=== PATIENT | female | born 1940 | race Caucasian/White ===

== ENCOUNTER → 2017-08-05 11:08 | Outpatient (CLI) | payer MEDICARE, OTHER, SELFPAY ==
[2017-08-05 12:59] LABS: Anion Gap 6 (5-15); BUN 17 mg/dL (7-18); BUN/Creat Ratio 18.1 RATIO (10-20); Calcium,Total 8.9 mg/dL (8.5-10.1); Chloride 106 mmol/L (98-107); Creatinine, Serum 0.94 mg/dL (0.55-1.02); EST Glomerular Filtration Rate 62 mL/min (>60); Est Glom Filt Rate - Afr Amer 75 mL/min (>60); Glucose 176 mg/dL (74-106); Potassium 4.1 mmol/L (3.5-5.1); Sodium Level 140 mmol/L (136-145); Thyroid Stim Hormone (TSH) 1.57 uIU/mL (0.358-3.74)
== END ==
PROVIDERS: Family Provider Family Medicine; PCP Family Medicine; Visit Provider Family Medicine
DX: I10 Essential (primary) hypertension (principal); F41.1 Generalized anxiety disorder
CPT/HCPCS: 36415; 80048; 84443

== ENCOUNTER → 2018-11-10 | Outpatient (CLI) | payer MEDICARE, SELFPAY ==
[2018-11-10 12:25] LABS: Absolute Lymphocyte Count 2.07 X10^3/uL (0.83-4.51); Absolute Neutrophil Count 3.8 X10^3/uL (2.0-7.7); Basophil# 0.04 X10^3/uL; Basophil% 0.6 % (0-1); Eosinophils% 4.4 % (0-5); Hematocrit 36.3 % (37-47); Hemoglobin 11.7 g/dL (12.0-15.0); Lymphocyte # 2.07 X10^3/ul (4.0); Lymphocyte % 30.5 % (19-41); Mean Corp Hgb Conc 32.2 g/dL (32-36); Mean Corpuscular Hgb 30.9 pg (27.0-32.0); Mean Corpuscular Volume 95.8 fL (81-99); Mean Platelet Vol. 12.1 fl (6.2-12.0); Monocyte# 0.52 X10^3/uL; Monocyte% 7.7 % (0-10); NRBC Flagged by Analyzer 0 % (0-5); Neutrophil # 3.82 X10^3/uL (2.7-7.7); Neutrophil % 56.4 % (47-70); Platelet Count 191 K/mm3 (150-450); RBC Distribution Width CV 13.2 % (11.6-14.6); RBC Distribution Width SD 46.2 fl (35.1-43.9); Red Blood Count 3.79 M/mm3 (4.2-5.4); White Blood Count 6.8 K/mm3 (4.4-11.0)
[2018-11-10 12:47] LABS: ALB/GLOB Ratio 0.9 RATIO (0.9-2.4); AST(SGOT) 17 U/L (15-37); Alanine Aminotransfer ALT/SGPT 37 U/L (13-56); Albumin, Serum 3.4 g/dL (3.2-5.0); Alkaline Phosphatase 61 U/L (45-117); Anion Gap 10 (5-15); BUN 27 mg/dL (7-18); BUN/Creat Ratio 20.6 RATIO (10-20); CRP 7.33 mg/L (0.0-3.0); Chloride 106 mmol/L (98-107); Creatinine, Serum 1.31 mg/dL (0.55-1.02); EST Glomerular Filtration Rate 42 mL/min (>60); Est Glom Filt Rate - Afr Amer 51 mL/min (>60); Globulin 3.7 g/dL (2.2-4.2); Glucose 200 mg/dL (74-106); Protein, Total 7.1 g/dL (6.4-8.2); Rheumatoid Factor < 10.0 IU/mL (<15); Sodium Level 140 mmol/L (136-145); Thyroid Stim Hormone (TSH) 3.17 uIU/mL (0.358-3.74)
[2018-11-13 08:17] LABS: CCP IgG Antibodies 4 units (0-19)
== END | disposition home or self-care (01) ==
LOC: BFHLAB 08:33
PROVIDERS: Family Provider Family Medicine; PCP Family Medicine; Visit Provider Family Medicine
DX: E11.65 Type 2 diabetes mellitus with hyperglycemia (principal); I10 Essential (primary) hypertension; F41.1 Generalized anxiety disorder; M06.4 Inflammatory polyarthropathy
CPT/HCPCS: 36415; 80053; 84443; 85025; 86140; 86200; 86431

== ENCOUNTER 2019-04-26 19:00 | Emergency (ER) | payer MEDICARE, OTHER, SELFPAY ==
[2019-04-26 19:01] VITALS: BP 163/89; PULSE 91; RESP 16; TEMP 36.8; O2SAT 99; BMI 33.5
[2019-04-26 19:10] LABS: Bedside Glucose 196 mg/dL (70-110)
[2019-04-26 20:40] VITALS: BP 155/85; PULSE 81; RESP 16; O2SAT 97
[2019-04-26] MEDS: HYDROcodone Bitartrate/Apap 5/325 Tablet PO (20:44)
[2019-04-26] MEDS: Diphth,Pertuss(Acell),Tet Vac 0.5 ML Vial IM (20:46)
--- NOTE | 2019-04-26 20:50 | RAD_ITS ---
STUDY: X-RAY - LEFT SHOULDER REASON FOR EXAM: Female, 78 years old. fall, pain TECHNIQUE: 4 view(s) of the shoulder. COMPARISON: None. FINDINGS: There is mild degenerative arthrosis of the glenohumeral articulation. There is degenerative arthrosis of the acromioclavicular joint without inferior osseous spur formation. Normal acromion. There are mild degenerative changes of the humeral head. The soft tissue structures are unremarkable. There is no demonstrated fracture. Normal visualized pulmonary apex. RAD/Shoulder min 2 Views IMPRESSION: Degenerative changes as detailed above. There is no evidence of fracture or dislocation. Electronically Signed: Jak Garcias MD at 21:13 EST , Service support ,
--- NOTE | 2019-04-26 20:50 | RAD_ITS ---
STUDY: X-RAY - LEFT HAND REASON FOR EXAM: Female, 78 years old. fall, left hand pain and bruising, patient unable to remove ring TECHNIQUE: 3 view(s) of the hand. COMPARISON: None. FINDINGS: Normal radiocarpal articulation. Normal distal radioulnar joint. Normal visualized carpal bones. Normal carpal articulations There is degenerative arthrosis of the carpometacarpal (CMC) articulation of the thumb. Normal second through fifth carpometacarpal joints. Normal metacarpi. Normal metacarpophalangeal joint of the thumb. There is degenerative arthrosis of the interphalangeal joint of the thumb with articular joint space narrowing. Normal proximal and distal phalanges of the thumb. There are mild arthritic changes of the third metacarpal phalangeal joint. Normal proximal and distal interphalangeal joints of the second through fifth fingers. A ring obscures the midshaft of the fourth proximal phalanx. The soft tissue structures are unremarkable. RAD/Hand Min 3 Views IMPRESSION: There is no evidence of fracture or dislocation. There are diffuse degenerative changes as detailed above. Electronically Signed: Jak Garcias MD at 21:10 EST , Service support ,
--- NOTE | 2019-04-26 22:41 | ED.DEP ---
ED Disposition - Plan for ED Patient: Instructions: FALL, Mechanical Prescriptions: Hydrocodone Bitart/Apap 5-325 [[place] 5MG-325MG] 1 tablet PO Q6H PRN PRN 3 Days #10 tablet PRN Reason: Pain Referrals: Jaciel Barragan MD [Primary Care Provider] -
--- NOTE | 2019-04-26 22:45 | DCINST.ED_ITS ---
ED Disposition - Plan for ED Patient: Instructions: FALL, Mechanical Prescriptions: Hydrocodone Bitart/Apap 5-325 [[place] 5MG-325MG] 1 tab PO Q6H PRN PRN 3 Days #10 tab PRN Reason: Pain Prescription Printed Referrals: Jaciel Barragan MD [Primary Care Provider] - Kb Flynn MD [STAFF PHYSICIAN] -
--- NOTE | 2019-04-26 22:46 | ED.DCSUM_ITS ---
- ER Visit Summary Date of Service: 04/26/19 Chief Complaint: Fall History of Present Illness: The patient is a 78 F presenting after fall. Patient was walking her dog and tripped and fell. She fell onto her left shoulder. She did not hit her head or lose consciousness. She is not on anticoagulants. Last tetanus is unknown. She complains of left shoulder and left hand pain. Denies other complaints. Physical Examination: Vitals are stable. Patient is afebrile. Alert no acute distress. HEENT exam is unremarkable. Neck is nontender Lungs are clear and equal bilaterally. Heart is regular rate and rhythm. Abdomen is soft nontender nondistended. Extremities left shoulder diffuse tenderness with painful range of motion. Left hand ecchymosis. Left small finger abrasion. Neurovascularly intact distally. Skin is warm and dry. No focal neurologic deficit. Remainder of exam is unremarkable. Emergency Department Course and Treatment: X-ray left shoulder and left hand show no fracture or dislocation. She was given tetanus IM. Wound was cleaned and dressed. She was given [place]. She was given a sling. Advised range of motion exercises. She is advised to follow-up with her primary care physician or orthopedics. Advised return to ED for worsening complaints. Disposition: Discharge home Impression: Left shoulder contusion, left hand contusion, status post mechanical fall This note was generated with Logo[employer] dictation software. It may contain incorrect words, spelling, and punctuation that were not noted in review of the chart prior to signing ED Disposition - Plan for ED Patient: Instructions: FALL, Mechanical Prescriptions: Hydrocodone Bitart/Apap 5-325 [[place] 5MG-325MG] 1 tab PO Q6H PRN PRN 3 Days #10 tab PRN Reason: Pain Prescription Printed Referrals: Kb Flynn MD [STAFF PHYSICIAN] - Jaciel Barragan MD [Primary Care Provider] -
== END 2019-04-26 22:57 | disposition home or self-care (01) ==
PROVIDERS: Emergency Provider Emergency Medicine; PCP Family Medicine
DX: S40.012A Contusion of left shoulder, initial encounter (principal); S60.222A Contusion of left hand, initial encounter; S60.417A Abrasion of left little finger, initial encounter; W01.0XXA Fall on same level from slipping, tripping and stumbling without subsequent striking against object, initial encounter; Y93.K1 Activity, walking an animal; Y92.9 Unspecified place or not applicable; E11.9 Type 2 diabetes mellitus without complications; I10 Essential (primary) hypertension; Z79.84 Long term (current) use of oral hypoglycemic drugs; Z79.899 Other long term (current) drug therapy
CPT/HCPCS: 73030; 73130; 82962; 90471; 90715; 99283

== ENCOUNTER → 2019-05-25 10:11 | Outpatient (CLI) | payer MEDICARE, OTHER, SELFPAY ==
[2019-04-26 19:01] VITALS: BMI 33.5
[2019-05-25 12:23] LABS: Absolute Neutrophil Count 4.9 X10^3/uL (2.0-7.7); Basophil# 0.05 X10^3/uL; Basophil% 0.6 % (0-1); Eosinophil# 0.33 X10^3/uL; Hemoglobin 11.5 g/dL (12.0-15.0); Lymphocyte % 28.2 % (19-41); Mean Corp Hgb Conc 31.9 g/dL (32-36); Mean Corpuscular Hgb 30.7 pg (27.0-32.0); Mean Platelet Vol. 11.9 fl (6.2-12.0); Monocyte# 0.54 X10^3/uL; Monocyte% 6.6 % (0-10); NRBC Flagged by Analyzer 0 % (0-5); Neutrophil # 4.91 X10^3/uL (2.7-7.7); Neutrophil % 60.2 % (47-70); Platelet Count 215 K/mm3 (150-450); RBC Distribution Width CV 13.2 % (11.6-14.6); RBC Distribution Width SD 46.5 fl (35.1-43.9); Red Blood Count 3.75 M/mm3 (4.2-5.4); White Blood Count 8.2 K/mm3 (4.4-11.0)
[2019-05-25 12:45] LABS: ALB/GLOB Ratio 0.8 RATIO (0.9-2.4); AST(SGOT) 17 U/L (15-37); Alanine Aminotransfer ALT/SGPT 37 U/L (13-56); Albumin, Serum 3.3 g/dL (3.2-5.0); Alkaline Phosphatase 67 U/L (45-117); Anion Gap 7 (5-15); BUN 27 mg/dL (7-18); BUN/Creat Ratio 19.4 RATIO (10-20); Calcium,Total 9.7 mg/dL (8.5-10.1); Chloride 107 mmol/L (98-107); Creatinine, Serum 1.39 mg/dL (0.55-1.02); EST Glomerular Filtration Rate 39 mL/min (>60); Est Glom Filt Rate - Afr Amer 47 mL/min (>60); Glucose 192 mg/dL (74-106); Potassium 4.6 mmol/L (3.5-5.1); Protein, Total 7.3 g/dL (6.4-8.2); Sodium Level 140 mmol/L (136-145); Thyroid Stim Hormone (TSH) 1.43 uIU/mL (0.358-3.74)
[2019-05-25 12:47] LABS: Vitamin B12 499 pg/mL (211-911)
== END ==
PROVIDERS: PCP Family Medicine; Visit Provider Family Medicine
DX: E11.42 Type 2 diabetes mellitus with diabetic polyneuropathy (principal); R10.811 Right upper quadrant abdominal tenderness
CPT/HCPCS: 36415; 80053; 82607; 84443; 85025

== ENCOUNTER → 2019-06-04 09:38 | Outpatient (CLI) | payer MEDICARE, OTHER, SELFPAY ==
--- NOTE | 2019-06-04 09:39 | US_ITS ---
STUDY: ABDOMINAL ULTRASOUND - RIGHT UPPER QUADRANT REASON FOR VISIT: Female, 79 years old. Right upper quadrant fullness TECHNIQUE: Ultrasound evaluation of the right upper quadrant was performed with real-time and static dumont-scale imaging. TECHNICAL QUALITY: Adequate. COMPARISON: 12 October 2016 FINDINGS: Liver: The liver measures 17 cm. There is increased echogenicity of the liver. The bile ducts are within normal limits. There is hepatic color flow. The direction of portal flow is hepatopetal. There is no demonstrated mass lesion. Gallbladder: Normal distended gallbladder. The gallbladder wall measures 2 mm. There is a negative sonographic Martinez''s sign. There is no pericholecystic fluid. There are no gallstones. Common Bile Duct (C.B.D.): The common bile duct measures 4 mm. Pancreas: Normal size of the head, body and tail of the pancreas. There is normal echogenicity of the pancreas. There is no demonstrated pancreatic mass or cyst. Right Kidney: Normal size of the right kidney. The right kidney measures 10.4 x 6.7 x 4.1 cm. Normal renal cortex. The right cortex measures 1.2 cm. There is no demonstrated renal mass or cyst. There is no right hydronephrosis. US/Abdomen Limited IMPRESSION: Hepatomegaly and hepatic steatosis. Hepatology referral is advised. Electronically Signed: Carrington Glynn, at 20:00 EST Tel , Service support ,
== END ==
PROVIDERS: PCP Family Medicine; Referring Provider Family Medicine; Visit Provider Family Medicine
DX: R10.811 Right upper quadrant abdominal tenderness (principal); R19.01 Right upper quadrant abdominal swelling, mass and lump
CPT/HCPCS: 76705

== ENCOUNTER → 2019-06-29 11:26 | Outpatient (CLI) | payer MEDICARE, OTHER, SELFPAY ==
[2019-06-29 13:07] LABS: Ferritin 64 ng/mL (8-252); Iron 72 ug/dL (50-170); Iron Binding Capacity,Total 323 ug/dL (250-450); PERCENT IRON SATURATION 22.3 % (15.0-55.0)
[2019-06-29 13:40] LABS: Hepatitis B Surface Antibody Non-Reactive; Hepatitis B Surface Antigen Non-Reactive (Nonreactive); Hepatitis C Antibody Non-Reactive (Nonreactive)
[2019-07-02 13:57] LABS: ANTINUCLEAR ANTIBODIES DIRECT Negative (Negative); Anti-Mitochondrial AB <20.0 Units (0.0-20.0)
== END ==
PROVIDERS: PCP Family Medicine; Visit Provider Internal Medicine Gastroenterology
DX: K76.0 Fatty (change of) liver, not elsewhere classified (principal); R10.10 Upper abdominal pain, unspecified; R19.4 Change in bowel habit; D64.9 Anemia, unspecified
CPT/HCPCS: 36415; 82105; 82390; 82728; 82784; 83516; 83540; 83550; 86038; 86644; 86645; 86664; 86665; 86704; 86705; 86706; 86708; 86709; 86803; 87340

== ENCOUNTER 2019-07-02 13:00 | Outpatient (RCR) | payer MEDICARE, OTHER, SELFPAY ==
--- NOTE | 2019-05-30 09:19 | HP.PTEVAL ---
Patient's Visit Information MARIEL KIM is a 79 year old F referred to Physical Therapy by Jaciel Barragan MD with a diagnosis of ataxic gait, falls.. Date of Evaluation: 05/30/19 Physical Therapist: Gianni Rangel DPT, OCS, CSCS - Visit Plan Frequency: 2x /Week Duration: 4-6 Weeks Plan: Neurocom balance assessment then. 2x/week for 4 weeks for. vestibular adn VOR challenges, and general strength/functional strength pt can do at home and transfoer off floor. - Subjective Findings: My balance is not good. Has a rough time getting up out of chair. Standing still is challenging.Has abdominal pain and will have tests next week. Has fallen 2x lately and mostly caused by dog pulling on her. One time turned too quick in the house on way to bathroom and lost balance. Has h/o B TKA and cannot get up off floor. No dizzyness. Has some anxiety. Has B feet numbness from diabetes. Balance has felt off for a long time but addressing now due to falls. Got cane and uses it now. Enjoys wrestling watching and having a hard time to get around in the gyms. [facility] with stairlift to basement. Able to dobasics herself buit needs to rest adn take it slow. No regular exercises. Spends day taking care of cat and dog, cleans and watches hallmark movies. Goes to breakfast a few times per month. with friends. - Pain R abdomen Pain Intensity (Out of 10): 0 Pain Intensity Range: 1, 6 - Objective Walks carrying cane slowly back to PT but I, better mpod I iwth cane. Transfers out of chair slow but steady, needing to take a minute upon standing. VOR Walking is difficult. Feels unsteady upon standing for short time, no dizzyness. Tightness present in HS and quads, piriformis all mod tight. Steps are short and poor weight shift forward. reflexes 2/3 patella and achilles. Sensation diminished to gross light touch in feet. Strength in hips 3+ and knees 4- and ankles DF 3+, PF 4- and ev/inv 3+. Coordination to reciprocal toe tapping is poor. - Balance Scores Functional Gait Assessment Score: 19 % Disability: 36.6700 CATSIB Score (Max score 120 seconds): 72 - Goals Goal 1:: FGA to diminish fall risk. Goal Time Frame: 4-6 Weeks Goal 2:: Pt feel 75% better in balance and safe getting up out of chair. Goal Time Frame: 4-6 Weeks Goal 3:: I approp HEp to minimize future problems. Goal Time Frame: 4-6 Weeks Goal 4:: Get up off floor without assist. Goal Time Frame: 4-6 Weeks - Rehabilitation Potential Physical Therapy Diagnosis: Balance defictis due to neuroapthy and VOR deficits. Rehabilitation Potential: Fair - Anticipated Interventions Patient/Client Instruction: Educate patient on: Condition, Plan of Care For the Purpose of:: To improve muscle performance and motor function, To increase tolerance to activity/condition/position, To improve ability of physical actions for home/community/work/leisure, To improve gait and locomotor functions Therapeutic Exercise to Include: Strength training, Balance training, Postural training, Flexibilty training, Gait and locomotor training, Neuromotor development For the Purpose of:: To improve muscle performance and motor function, To increase tolerance to activity/condition/position Thank you for the opportunity to evaluate your patient. For Medicare and Medicare HMO plans, please review the plan of care and approve it. It will need to be FAXED BACK to us at [phone] for Medicare purposes. For Medicare only, by signing this I certify the plan of care. Please let me know if there are questions or concerns regarding this plan of care. Physician Signature: Date:
--- NOTE | 2019-06-05 11:42 | HP.PTCOM_ITS ---
PT Communication Note 06/05/[address] Jaciel Barragan MD , Thank you for the referral of Denisha to [facility] for baalnce assessment. i have enclosed a copy of the results for your review. In summation, she scored low on the vestibular portion of the [employer] test. She scored poorly on most portions of the Limits of Stability Test. She shows great fear of shifting her weight and sudden movments. With these results in mind, we will treat her with weight shifting and vestibular exercises as well as general balance and functional exercise. If there are questions regarding her PT, please feel free to call me. Thank you for this referral. Sincerely, TANK AlmanzaT, OCS, CSCS Contact Information
--- NOTE | 2019-07-02 13:53 | HP.PTDCSUM_ITS ---
It has been my pleasure to treat MARIEL KIM referred by Jaciel Barragan MD, with the diagnosis of ataxic gait, falls. for a total of 10 visit(s). Discharge Date: 07/02/19 Please see the following information for a summary of their discharge status. Subjective: Feeling better with balance. Does not use cane anymore. No falls. Does not feel dangerous. Has some home exercises she will continue. R abdomen Pain Intensity (Out of 10): 5 % Improvement: 70 Objective/Function: FGA +3. Transfer off the floor not smooth but was I with mat table. Walks on firm flat surface safe and I. Wishes to be done with PT due to other medical problems and COVID 19. Goal 1:: FGA to diminish fall risk. Goal Progress: Goal Met Goal 2:: Pt feel 75% better in balance and safe getting up out of chair. Goal Progress: Goal Met Goal 3:: I approp HEp to minimize future problems. Goal Progress: Goal Met Goal 4:: Get up off floor without assist. Goal Progress: Goal Met Plan: d/c If there are questions or concerns regarding this patient's physical therapy, pl ease feel free to call me at [phone]. Thank you for the referral of this patient. Sincerely, Gianni Rangel, DPT, OCS, CSCS
== END 2019-07-02 19:00 | disposition home or self-care (01) ==
LOC: PT 13:00
PROVIDERS: PCP Family Medicine; Referring Provider Family Medicine; Visit Provider Family Medicine
DX: R26.81 Unsteadiness on feet (principal); R26.0 Ataxic gait; Z91.81 History of falling
CPT/HCPCS: 97110; 97162; 97164; 97750

== ENCOUNTER → 2019-12-26 14:36 | Outpatient (CLI) | payer MEDICARE, OTHER, SELFPAY ==
[2019-12-26 16:51] LABS: Absolute Lymphocyte Count 2.27 X10^3/uL (0.83-4.51); Absolute Neutrophil Count 4.6 X10^3/uL (2.0-7.7); Basophil# 0.05 X10^3/uL; Basophil% 0.7 % (0-1); Eosinophil# 0.26 X10^3/uL; Eosinophils% 3.4 % (0-5); Hemoglobin 11.4 g/dL (12.0-15.0); Lymphocyte # 2.27 X10^3/ul (4.0); Lymphocyte % 29.6 % (19-41); Mean Corp Hgb Conc 31.7 g/dL (32-36); Mean Corpuscular Hgb 30.4 pg (27.0-32.0); Mean Platelet Vol. 12.3 fl (6.2-12.0); Monocyte# 0.48 X10^3/uL; Monocyte% 6.3 % (0-10); NRBC Flagged by Analyzer 0 % (0-5); Neutrophil # 4.59 X10^3/uL (2.7-7.7); Neutrophil % 59.6 % (47-70); Platelet Count 233 K/mm3 (150-450); RBC Distribution Width CV 13.4 % (11.6-14.6); RBC Distribution Width SD 47.4 fl (35.1-43.9); Red Blood Count 3.75 M/mm3 (4.2-5.4); White Blood Count 7.7 K/mm3 (4.4-11.0)
[2019-12-26 17:46] LABS: ALB/GLOB Ratio 0.9 RATIO (0.9-2.4); AST(SGOT) 12 U/L (15-37); Alanine Aminotransfer ALT/SGPT 27 U/L (13-56); Albumin, Serum 3.4 g/dL (3.2-5.0); Alkaline Phosphatase 59 U/L (45-117); Anion Gap 5 (5-15); BUN 26 mg/dL (7-18); BUN/Creat Ratio 18.8 RATIO (10-20); Calcium,Total 9.1 mg/dL (8.5-10.1); Chloride 105 mmol/L (98-107); Creatinine, Serum 1.38 mg/dL (0.55-1.02); EST Glomerular Filtration Rate 39 mL/min (>60); Est Glom Filt Rate - Afr Amer 48 mL/min (>60); Globulin 3.9 g/dL (2.2-4.2); Glucose 258 mg/dL (74-106); Iron 81 ug/dL (50-170); Potassium 4.9 mmol/L (3.5-5.1); Protein, Total 7.3 g/dL (6.4-8.2); Sodium Level 138 mmol/L (136-145)
== END ==
PROVIDERS: PCP Family Medicine; Visit Provider Family Medicine
DX: E11.65 Type 2 diabetes mellitus with hyperglycemia (principal); R16.0 Hepatomegaly, not elsewhere classified; D64.9 Anemia, unspecified
CPT/HCPCS: 36415; 80053; 83540; 85025

== ENCOUNTER 2020-02-19 18:09 | Emergency (ER) | payer MEDICARE, OTHER, SELFPAY ==
[2020-02-19 18:10] VITALS: BP 117/66; PULSE 92; RESP 16; TEMP 36.4; O2SAT 97; BMI 26.2
[2020-02-19 18:11] VITALS: BP 117/66; PULSE 92; RESP 16; TEMP 36.4; O2SAT 97
--- NOTE | 2020-02-19 19:07 | ED.DCSUM_ITS ---
History of Present Illness Chief Complaint: Diarrhea Informant: Patient Narrative: 79-year-old female with past medical history of hypertension and diabetes presents with diarrhea for the past 3 weeks. States that she has approximately 6-7 stools per day. Describes them as watery. Denies any hematochezia or melena. States that she has abdominal cramping which is relieved by her bowel movement. No recent antibiotic therapy or travel. No recent hospitalization. Denies any fever or chills. Denies any urinary symptoms. Past Medical History - Allergies and Home Meds Allergies/Adverse Reactions: Allergies No Known Allergies Allergy (Verified 04/26/19 19:05) Primary Care Physician: Jaciel Barragan MD [Primary Care Provider] - Past Medical History: - - HTN and DM Lives: Spouse/ Significant Other Smoking Status: Never smoker Alcohol: None Drugs: None Review of Systems General: Denies: Chills, Fever, Sweats Eyes: Denies: Visual changes - bilaterally, Diplopia ENT: Denies: Rhinorrhea, Sore throat Cardiovascular: Denies: Chest pain, Palpitations Respiratory: Denies: Dyspnea, Cough, Dyspnea on exertion Gastrointestinal: Reports: Diarrhea. Denies: Abdominal pain, Nausea, Vomiting, Melena, Hematochezia Genitourinary: Denies: Dysuria, Hematuria, Frequency Musculoskeletal: Denies: Back pain, Extremity Pain Skin: Denies: Rash, Wounds Neurological: Denies: Headache, Weakness, Numbness Physical Exam Vital Signs/Narrative: Vital Signs Temp Pulse Resp BP Pulse Ox 02/19/20 18:10 97.6 F L 92 16 117/66 97 General: Well nourished, Well developed, No Acute Distress Head: Normocephalic, Atraumatic Eyes: Perrl, EOMI ENT: Moist mucous membranes, No rhinorrhea Neck: Supple, Nontender Cardiovascular: Regular rate, Regular rhythm, No murmurs Respiratory: No distress, CTA bilaterally, Chest nontender Abdomen: Soft, Nontender, Nondistended, Normal bowel sounds Back: Nontender, Normal Inspection Extremities: Nontender, No edema Skin: Normal color, No rash Neurological: Alert, Oriented x3, Cranial nerves II-XII grossly intact, Normal Strength, Normal Sensation Psychological: Normal affect, Normal Mood Diagnostic/Tx/Re-eval Laboratory Data 11/10/20 11/10/20 11/10/20 19:03 19:03 20:41 WBC 6.7 RBC 3.76 L Hgb 11.6 L Hct 36.6 L MCV 97.3 MCH 30.9 MCHC 31.7 L RDW Std Deviation 48.1 H RDW Coeff of Ed 13.4 Plt Count 175 MPV 12.4 H Immature Gran % (Auto) 0.600 Neut % (Auto) 61.7 Lymph % (Auto) 26.9 Wake % (Auto) 9.3 Eos % (Auto) 1.2 Baso % (Auto) 0.3 Absolute Neuts (auto) 4.1 Absolute Lymphs (auto) 1.79 Nucleated RBC % 0 Sodium 138 Potassium 5.8 H Chloride 107 Carbon Dioxide 24.0 Anion Gap 7 BUN 29 H Creatinine 1.84 H Estim Creat Clear Calc 21.76 Est GFR (MDRD) Af Amer 34 L Est GFR (MDRD) Non-Af 28 L BUN/Creatinine Ratio 15.8 Glucose 177 H Calcium 9.3 Total Bilirubin 0.40 AST 28 ALT 29 Alkaline Phosphatase 63 Total Protein 7.5 Albumin 3.1 L Globulin 4.4 H Albumin/Globulin Ratio 0.7 L Lipase 91 Urine Color Yellow Urine Clarity Sl. Cloudy Urine pH 6.0 Ur Specific [place] 1.020 Urine Protein 30 H Urine Glucose (UA) Normal Urine Ketones Negative Urine Occult Blood 10 H Urine Nitrite Negative Urine Bilirubin Negative Urine Urobilinogen Normal Ur Leukocyte Esterase 500 H Urine RBC 0 SEEN Urine WBC 5-10 SEEN Ur Squamous Epith Cells 0-5 SEEN Urine Bacteria 2+ Urine Mucus 0 SEEN - Medical Decision Making Patient appears well and nontoxic. Benign abdominal exam. Slight acute renal insufficiency. Patient given 1 L of normal saline. Patient able to drink and tolerate Gatorade. Will be given loperamide. Will follow up with her party supply specialist. Discharged home in stable condition. Impression: 1. Diarrhea 2. Volume depletion ED Disposition - Plan for ED Patient: Disposition: Home or Assisted Living Instructions: ED Diarrhea Viral Prescriptions: Loperamide HCl [Loperamide] 2 mg PO 4X/DAY #20 tab Prescription Printed Referrals: Jaciel Barragan MD [Primary Care Provider] - 2 Days
[2020-02-19] MEDS: 0.9% Normal Saline 1,000 ML 1000 ML IV (19:14)
[2020-02-19 19:28] LABS: Absolute Lymphocyte Count 1.79 X10^3/uL (0.83-4.51); Absolute Neutrophil Count 4.1 X10^3/uL (2.0-7.7); Basophil# 0.02 X10^3/uL; Basophil% 0.3 % (0-1); Eosinophil# 0.08 X10^3/uL; Eosinophils% 1.2 % (0-5); Hematocrit 36.6 % (37-47); Hemoglobin 11.6 g/dL (12.0-15.0); Lymphocyte # 1.79 X10^3/ul (4.0); Lymphocyte % 26.9 % (19-41); Mean Corp Hgb Conc 31.7 g/dL (32-36); Mean Corpuscular Hgb 30.9 pg (27.0-32.0); Mean Corpuscular Volume 97.3 fL (81-99); Mean Platelet Vol. 12.4 fl (6.2-12.0); Monocyte# 0.62 X10^3/uL; Monocyte% 9.3 % (0-10); NRBC Flagged by Analyzer 0 % (0-5); Neutrophil # 4.11 X10^3/uL (2.7-7.7); Neutrophil % 61.7 % (47-70); Platelet Count 175 K/mm3 (150-450); RBC Distribution Width CV 13.4 % (11.6-14.6); RBC Distribution Width SD 48.1 fl (35.1-43.9); Red Blood Count 3.76 M/mm3 (4.2-5.4); White Blood Count 6.7 K/mm3 (4.4-11.0)
[2020-02-19 19:49] LABS: ALB/GLOB Ratio 0.7 RATIO (0.9-2.4); AST(SGOT) 28 U/L (15-37); Alanine Aminotransfer ALT/SGPT 29 U/L (13-56); Albumin, Serum 3.1 g/dL (3.2-5.0); Alkaline Phosphatase 63 U/L (45-117); Anion Gap 7 (5-15); BUN 29 mg/dL (7-18); BUN/Creat Ratio 15.8 RATIO (10-20); Calcium,Total 9.3 mg/dL (8.5-10.1); Chloride 107 mmol/L (98-107); Creatinine, Serum 1.84 mg/dL (0.55-1.02); EST Glomerular Filtration Rate 28 mL/min (>60); Est Glom Filt Rate - Afr Amer 34 mL/min (>60); Estimated Creatinine Clearance 21.76 ml/min; Globulin 4.4 g/dL (2.2-4.2); Glucose 177 mg/dL (74-106); Lipase 91 U/L (73-393); Potassium 5.8 mmol/L (3.5-5.1); Protein, Total 7.5 g/dL (6.4-8.2); Sodium Level 138 mmol/L (136-145)
[2020-02-19 20:09] VITALS: BP 133/67; PULSE 53; RESP 18; O2SAT 98
[2020-02-19 20:49] LABS: Mucous, Urine 0 SEEN /hpf (<or=2+); Red Blood Cells-Urine 0 SEEN /hpf (0-5)
[2020-02-19 20:50] LABS: Color, Urine Yellow (Yellow); Glucose, Dipstick Normal (Normal); Ketone-Dipstick Negative (Negative); Leukocyte Esterase-Dipstick 500 /ul (Negative); Nitrite-Dipstick Negative (Negative); Occult Blood-Urine 10 /ul (Negative); Protein-Dipstick 30 mg/dl (Negative); Urine Bilirubin Dipstick Negative (Negative); Urine Clarity Sl. Cloudy (Clear); Urine Urobilinogen Normal (Normal)
[2020-02-19 20:59] LABS: Bacteria 2+ /hpf (None Seen); Squamous Epithelial Cells - UA 0-5 SEEN /hpf (5-10); White Blood Cells 5-10 SEEN /hpf (0-5)
== END 2020-02-19 22:01 | disposition home or self-care (01) ==
PROVIDERS: Emergency Provider Emergency Medicine; PCP Family Medicine
DX: R19.7 Diarrhea, unspecified (principal); E86.9 Volume depletion, unspecified; N28.9 Disorder of kidney and ureter, unspecified; I10 Essential (primary) hypertension; E11.9 Type 2 diabetes mellitus without complications; Z79.84 Long term (current) use of oral hypoglycemic drugs; Z79.899 Other long term (current) drug therapy
CPT/HCPCS: 80053; 81001; 83690; 85025; 87086; 87088; 96360; 99282; J7030; A4216

== ENCOUNTER 2020-02-22 08:12 | Inpatient (IN) | payer MEDICARE, OTHER, SELFPAY ==
[2020-02-22] VITALS (9 sets, daily range): BP systolic 124–170; BP diastolic 68–94; PULSE 73–82; RESP 14–23; TEMP 36.2–37.1; O2SAT 93–98; BMI 32.8; BMI 32.1
--- NOTE | 2020-02-22 08:59 | EKG12_ITS ---
Test Reason : Blood Pressure : / mmHG Vent. Rate : 079 BPM Atrial Rate : 079 BPM P-R Int : 130 ms QRS Dur : 088 ms QT Int : 402 ms P-R-T Axes : 045 -31 073 degrees QTc Int : 460 ms Normal sinus rhythm Left axis deviation Abnormal ECG Confirmed by DELILAH MANZO, MARY ([id number]), supervising editor news reel OBED MUÑOZ ([id number]) on 02/26/2020 8:37:07 AM Referred By: YANET Confirmed By:MARY MAZARIEGOS MD
--- NOTE | 2020-02-22 09:00 | ED.VISSUMM ---
- ER Visit Summary Date of Service: 02/22/20 Chief Complaint: Generalized weakness History of Present Illness: The patient is a 79 F history of diabetes and diabetic neuropathy. Patient states that she is just felt weak for last several days. She was treated in the emergency department earlier this week. Said she was feeling better but now feels worse again. Denies any chest pain. Denies any shortness of breath. Denies any abdominal pain. Diarrhea is resolved. No melena. No fever. She has had some sweats. She denies any chest pain. No dysuria. Physical Examination: Female no acute distress. Vital signs stable afebrile. Pulse ox 97% on room air no signs hypoxia. HEENT exam unremarkable. Neck nontender. Lungs clear to auscultation bilaterally. Heart regular rhythm no murmur. Abdomen soft and nontender. Extremities moves all 4. No edema. Bilateral prior knee replacements. Neurologically she is awake and alert. She has diabetic neuropathies with numbness in her hands and feet that is not new. No motor deficits. Answering questions and following commands. Acting appropriately. Test Results: EKG shows normal sinus rhythm rate of 79 no acute signs of AR or ischemia. Chest x-ray portable 1 view I will see any acute abnormality radiologist is concerned for a possible left lower lobe infiltrate I would not call that at this time. CBC shows a white count of 6. Hemoglobin 12 no bands. Chemistries glucose is 69 BUN 23 creatinine 1.41 worsening renal insufficiency. Gap of 5. UA 25-50 whites no reds 2+ bacteria no nitrates culture sent consistent with a UTI. Covid panel is positive. Emergency Department Course and Treatment: Screening labs. Clinically patient looks good. She really does not look that dehydrated. Unremarkable exam. Treatment Plan: Repeat exam patient is resting comfortably in bed she and I discussed all of her test results she tells me at home she was so weak she could not get out of bed and to call the squad to bring her in. Given her age and UTI and generalized weakness and overall comorbidities I think she will need to be admitted for further evaluation and IV antibiotics. She will be started on IV Levaquin. Disposition: Hospitalist on page Impression: Acute generalized weakness secondary to Covid respiratory infection Unable to ambulate secondary to weakness Acute UTI Renal insufficiency This note was generated with [employer] dictation software. It may contain incorrect words, spelling, and punctuation that were not noted in review of the chart prior to signing ED Disposition - Plan for ED Patient:
[2020-02-22 09:07] LABS: Absolute Lymphocyte Count 1.13 X10^3/uL (0.83-4.51); Absolute Neutrophil Count 4.9 X10^3/uL (2.0-7.7); Basophil# 0.02 X10^3/uL; Basophil% 0.3 % (0-1); Eosinophil# 0.06 X10^3/uL; Eosinophils% 0.9 % (0-5); Hematocrit 37.9 % (37-47); Hemoglobin 12.1 g/dL (12.0-15.0); Lymphocyte # 1.13 X10^3/ul (4.0); Mean Corp Hgb Conc 31.9 g/dL (32-36); Mean Corpuscular Hgb 30.7 pg (27.0-32.0); Mean Corpuscular Volume 96.2 fL (81-99); Mean Platelet Vol. 11.4 fl (6.2-12.0); Monocyte# 0.49 X10^3/uL; Monocyte% 7.4 % (0-10); NRBC Flagged by Analyzer 0 % (0-5); Neutrophil % 73.6 % (47-70); Platelet Count 190 K/mm3 (150-450); RBC Distribution Width CV 12.9 % (11.6-14.6); RBC Distribution Width SD 46.1 fl (35.1-43.9); Red Blood Count 3.94 M/mm3 (4.2-5.4); White Blood Count 6.7 K/mm3 (4.4-11.0)
[2020-02-22 09:22] LABS: Anion Gap 5 (5-15); BUN 23 mg/dL (7-18); BUN/Creat Ratio 16.3 RATIO (10-20); Calcium,Total 9.3 mg/dL (8.5-10.1); Chloride 109 mmol/L (98-107); Creatinine, Serum 1.41 mg/dL (0.55-1.02); EST Glomerular Filtration Rate 38 mL/min (>60); Est Glom Filt Rate - Afr Amer 46 mL/min (>60); Glucose 69 mg/dL (74-106); Potassium 4.9 mmol/L (3.5-5.1); Sodium Level 139 mmol/L (136-145)
--- NOTE | 2020-02-22 09:26 | RAD_ITS ---
STUDY: X-RAY CHEST REASON FOR EXAM: Female, 79 years old. Pt c/o weakness, seen in ED few days ago for diarrhea TECHNIQUE: Single AP portable view of the chest. COMPARISON: None. FINDINGS: EKG electrodes are seen. There is a focal left lower lobe infiltrate. There is no demonstrated pleural abnormality. Normal size heart. Normal mediastinum and joslyn. Normal visualized pulmonary arteries. There is atherosclerotic calcification of the aortic arch with tortuosity. There are diffuse degenerative changes of the visualized thoracic spine. Normal visualized ribs, clavicles, and shoulders. There is no demonstrated abnormality of the visualized soft tissue structures of the upper abdomen. RAD/Chest 1 View (Portable) IMPRESSION: Focal left lower lobe infiltrate. Electronically Signed: Navjot Mahmood, at 9:51 EST , Service support ,
[2020-02-22 11:35] LABS: Mucous, Urine 0 SEEN /hpf (<or=2+)
[2020-02-22 11:38] LABS: Color, Urine Yellow (Yellow); Glucose, Dipstick Normal (Normal); Ketone-Dipstick Negative (Negative); Leukocyte Esterase-Dipstick 500 /ul (Negative); Nitrite-Dipstick Negative (Negative); Occult Blood-Urine 10 /ul (Negative); Protein-Dipstick 15 mg/dl (Negative); Urine Bilirubin Dipstick Negative (Negative); Urine Clarity Sl. Cloudy (Clear); Urine Urobilinogen Normal (Normal)
[2020-02-22 11:46] LABS: White Blood Cells 25-50 SEEN /hpf (0-5)
[2020-02-22 11:47] LABS: Bacteria 2+ /hpf (None Seen); Red Blood Cells-Urine 0 SEEN /hpf (0-5); Squamous Epithelial Cells - UA 0-5 SEEN /hpf (5-10)
[2020-02-22] MEDS: levoFLOXacin IV 750 MG/150 ML BAG 100 MG IV (12:34)
--- NOTE | 2020-02-22 12:41 | PCM.HP.STD ---
Problem List (1) COVID-19 Status: Acute (2) UTI (urinary tract infection) Status: Acute Qualifiers: Urinary tract infection type: site unspecified (3) Type 2 diabetes mellitus with hypoglycemia Status: Acute Qualifiers: Diabetes mellitus rodent exterminator insulin use: without rodent exterminator use Diabetes mellitus complication detail: without coma Qualified Code(s): E11.649 - Type 2 diabetes mellitus with hypoglycemia without coma (4) Chronic kidney disease, stage III (moderate) Status: Chronic (5) Hypertension Status: Chronic Qualifiers: Hypertension type: essential hypertension Qualified Code(s): I10 - Essential (primary) hypertension (6) Anxiety and depression Status: Chronic (7) GERD (gastroesophageal reflux disease) Status: Chronic Qualifiers: Esophagitis presence: esophagitis presence not specified Qualified Code(s): K21.9 - Gastro-esophageal reflux disease without esophagitis History of Present Illness Date of Admission: 02/22/20 Chief Complaint: Fatigue, malaise, recent diarrhea, fever, chills. The patient is a 79 y/o F w/ PMHx: Obesity, HTN, GERD, Anxiety and Depression, Diabetes mellitus type II who presents to the [facility] ED on 02/22/20 with history of cough, mild dyspnea, chills with diaphoresis, subjective fever in addition to diarrhea approximately 3 weeks prior noting that several family members had been ill and had been around her with Covid with recent discontinuation of quarantine however patient continued to have fatigue, malaise prompting ED evaluation 02/19/2020 for these complaints with urinalysis at that time unremarkable with urine culture with mixed derek administered Imodium at that time for diarrhea which eventually resolved however she now returns secondary to severity of increased debility and weakness, even unable to get up prompting evaluation. Patient denies any recent specific diarrhea, increased urinary frequency or suprapubic discomfort. Upon presentation to the ED patient does admit that she has not eaten all day. Work-up in the ED included T 97.5, heart rate 81, BP initially 170/82, respiratory rate 18, 97% on room air, CBC with WC 6.7, hemoglobin 12.1, platelet 190 without marked shift, D-dimer 0.82, BMP with chloride 109, BUN/creatinine 23/1.42, glucose 69, magnesium 1.2, urinalysis with specific gravity 1.020, nitrite negative, leukocyte esterase 500 however urine WBCs 25-50 with 2+ urine bacteria, Covid testing positive, urine culture pending per ED, chest x-ray read as a focal left lower lobe infiltrate but per review with the ED physician lower suspicion. Past Medical History Past Medical History (Chronic Problems): Chronic Problems Chronic kidney disease, stage III (moderate) (Chronic) Hypertension (Chronic) Anxiety and depression (Chronic) GERD (gastroesophageal reflux disease) (Chronic) Allergies No Known Allergies Allergy (Verified 02/22/20 08:52) Home Medications: Ambulatory Orders Medication Instructions Recorded Glimepiride [Amaryl] 4 mg PO BID 10/12/16 [place]-3 Fatty Acids/Fish Oil [Fish 1 cap PO DAILY 02/22/20 Oil 1,000 mg Capsule] Pantoprazole Sodium [Protonix] 40 mg PO DAILY 02/22/20 Paroxetine [Paxil] 20 mg PO DAILY 02/22/20 RX: Losartan Potassium 25 mg PO DAILY 02/22/20 metFORMIN HCl [Glucophage] 1,000 mg PO BIDCM 02/22/20 metFORMIN HCl [Glucophage] 500 mg PO DAILY@1200 02/22/20 Surgical History: - - Bilateral total knee replacement, partial hysterectomy. Psychiatric History: Anxiety, Depression MEDICAL RECEPTIONIST ASSISTANT History: No pertinent MEDICAL RECEPTIONIST ASSISTANT history Lives: Alone Smoking Status: Never smoker Tobacco Use: Non-smoker Alcohol: None Drugs: None - *Family History Maternal History Items: Heart Disease Paternal History Items: Pulmonary Disease Review of Systems Constitutional: Reports: Anorexia, Chills - Resolved., Fever - Resolved., Malaise, Weakness, Fatigue. Denies: Weight Change HEENT: Denies: Head Aches, Sinus Congestion, Sinus Drainage Cardiovascular: Denies: Chest Pain, Palpitations Respiratory: Reports: Shortness of Breath - Resolved.. Denies: Cough - Resolved., Shortness of breath at rest, Sputum production Gastrointestinal: Reports: Diarrhea - Resolved.. Denies: Abdominal Pain, Nausea, Vomiting Genitourinary: Denies: Dysuria Musculoskeletal: Reports: Joint Pain, Muscle pain. Denies: Joint Tenderness Skin: Denies: Rash, Wounds Neurological: Denies: Numbness, Tingling, Focal weakness Psychiatric: Reports: Anxiety, Depression. Denies: Homicidal Ideations, Suicidal Ideations Hematologic/ Lymphatic: Denies: Easy Bruising, Easy Bleeding VTE Information - Inpt Only VTE Present on Admission: No VTE Mechan Device Prophylaxis: SCD's VTE Pharm Prophylaxis ordered?: Yes Patient Problems: Active and Suspected Problems COVID-19 (Acute) Subjective: Patient seated upright in ED bed, fatigued and ill-appearing, no acute distress. Objective: Physical Examination: General: awake, alert, oriented x 3 and cooperative, seated upright in the ED bed, fatigued appearing. Skin: normal color, turgor, no icterus, cyanosis. HEENT: AT/NC, EOMI, PERRLA, dry MM, no carotid bruits or JVD noted. Lungs: Breath sounds, greater bases, no obvious distress, no rales, ronchi or wheezing. Heart: Regular rate and rhythm; no gallop, rub audible. Abdomen: soft, obese, no specific suprapubic tenderness and abdomen in general NTTP, ND, normal BS, no HSM. Extremities: no cyanosis, clubbing, or edema. Neurological: patient awake, alert, oriented x 3; cognitive function intact; pupils equally reactive to light and accomodation; cranial nerves II-XII grossly normal, moving all 4 extremities, no focal deficits, strength moderately to severely global decrease secondary to acute presentation. Psychiatric: affect appears fatigued, no acute evidence of depressive or anxiety feelings. - Physical Exam Vitals/I&O's: Vital Signs Temp Pulse Resp BP Pulse Ox 97.5 F L 76 16 164/94 H 97 02/22/20 08:13 02/22/20 12:29 02/22/20 12:29 02/22/20 12:29 02/22/20 12:29 Oxygen Delivery Method Room Air Weight: 185 lb 3.013 oz Body Mass Index (BMI) 32.8 Finger Stick Blood Glucose 196 Intake and Output for Last 24 Hours 02/20/20 02/21/20 02/22/20 23:59 23:59 23:59 Intake Total 500 / 500 Balance 500 / 500 Laboratory Results 02/22/20 09:00: WBC 6.7, RBC 3.94 L, Hgb 12.1, Hct 37.9, MCV 96.2, MCH 30.7, MCHC 31.9 L, RDW Std Deviation 46.1 H, RDW Coeff of Ed 12.9, Plt Count 190, MPV 11.4, Immature Gran % (Auto) 0.800, Neut % (Auto) 73.6 H, Lymph % (Auto) 17.0 L, [place] % (Auto) 7.4, Eos % (Auto) 0.9, Baso % (Auto) 0.3, Absolute Neuts (auto) 4.9, Absolute Lymphs (auto) 1.13, Nucleated RBC % 0 02/22/20 09:00: Sodium 139, Potassium 4.9, Chloride 109 H, Carbon Dioxide 25.0, Anion Gap 5, BUN 23 H, Creatinine 1.41 H, Estim Creat Clear Calc 27.20, Est GFR (MDRD) Af Amer 46 L, Est GFR (MDRD) Non-Af 38 L, BUN/Creatinine Ratio 16.3, Glucose 69 L, Calcium 9.3 02/22/20 11:30: Urine Color Yellow, Urine Clarity Sl. Cloudy, Urine pH 5.0, Ur Specific [place] 1.020, Urine Protein 15 H, Urine Glucose (UA) Normal, Urine Ketones Negative, Urine Occult Blood 10 H, Urine Nitrite Negative, Urine Bilirubin Negative, Urine Urobilinogen Normal, Ur Leukocyte Esterase 500 H, Urine RBC 0 SEEN, Urine WBC 25-50 SEEN, Ur Squamous Epith Cells 0-5 SEEN, Urine Bacteria 2+, Urine Mucus 0 SEEN 02/22/20 12:18: COVID-19 (MARY) Pending Current Medications Levofloxacin (Levaquin Iv) 750 mg in 150 mls @ 100 mls/hr IV X1 ONE Stop: 02/22/20 13:37 Last Admin: 02/22/20 12:34 Dose: 100 mls/hr Documented by: Assessment/Plan All Active Problems COVID-19 (Acute) UTI (urinary tract infection) (Acute) Type 2 diabetes mellitus with hypoglycemia (Acute) The patient is a 79 y/o F w/ PMHx: Obesity, HTN, GERD, Anxiety and Depression, Diabetes mellitus type II who presents to the [facility] ED on 02/22/20 with history of cough, mild dyspnea, chills with diaphoresis, subjective fever in addition to diarrhea approximately 3 weeks prior noting that several family members had been ill and had been around her with Covid with recent discontinuation of quarantine however patient continued to have fatigue, malaise. 1. Recent dyspnea, cough, fever, chills, diarrhea secondary to Acute Viral Syndrome, COVID-19: Patient clinical symptoms have improved with less and diarrhea however she had been taking antidiarrheal regimen, will admit to the Covid floor to be cautious, will maintain on oxygen with wean as tolerated to room air, HOB, IS parameters, Covid panel obtained upon admission with D-dimer 0.82 nearly normal when age-adjusted, CRP 49.40, procalcitonin less than 0.04, ferritin 141, LDH 167, continue supportive care including q 2 hour turning including prone given no prone bed availability and judicious hydration, closely monitor for worsening status for ARDS and multiorgan failure, continue treatment of concurrent UTI as noted #2. Given clinical improvement, resolved diarrhea, maintained on room air will defer any addition of Decadron and given timeline and improvement not candidate for additional agents. Infectious disease consulted, pending. 2. ? Acute Urinary Tract Infection: UA upon ED evaluation severe appearing but more remarkable than recent presentation although did have recent UA and urine culture that was not marked appearing, in the interim will maintain on Rocephin, monitor I/Os, transition as able pending sensitivities and speciation. If cultures are unremarkable will discontinue. 3. Diabetes mellitus type II with symptomatic hypoglycemia: Hold oral home regimen, encourage ADA diet, initiate D5 NS secondary to noted hypoglycemia in the ED with glucose 69, worsened upon transition to MedSurg 2, dextrose amp administered with some improvement, continue to closely monitor with accu checks w/ ISS hypoglycemia evident. Once improved and blood sugar stable will de-escalate off dextrose normal saline. 4. Chronic Kidney Disease Stage III with recent renal insufficiency associated with #1, resolved: Admission BUN/Cr 43/1.41, baseline renal function 1.4, had been on 02/19/2020 1.84, improved, repeat BMP in AM. 5. Hypertension: Continue home regimen including losartan given renal function resolution with hold parameters as needed, PRN hydralazine. 6. Anxiety and depression: We will continue patient home Paxil regimen. 7. GERD: We will continue home Protonix regimen. 8. DVT prophylaxis: SCDs, Lovenox. 9. CODE status: Full Code. Inpatient E&M: [id number] Init Hosp L3
[2020-02-22 13:24] LABS: Probe Check PASS; Specimen Processing Control PASS
[2020-02-22 16:01] LABS: D-Dimer Quantitative (DVT/PE) 0.82 FEU/ug/m (0.27-0.49)
[2020-02-22 16:25] LABS: Ferritin 141 ng/mL (8-252); LDH 167 U/L (84-246); Magnesium 1.2 mg/dL (1.6-2.6)
--- NOTE | 2020-02-22 16:30 | CON.PCM_ITS ---
Problem List (1) COVID-19 Status: Acute Reason for Consult: covid Consulted by: Dr. Lucio History of Present Illness: The patient is a 79 year old F presented with 3 weeks of diarrhea. Had some cough at the start, resolved. Reports her kids are teachers/principals, have been sick with covid, just now coming off of quarantine. Denies fever, chills, dyspnea, change in taste/smell, headache, n/v, abd pain. Diarrhea about 4-5 times a day, no blood in stool, no recent travel. Has some chronic aches due to arthritis, unchanged. Came to ED 02/18, UA neg, Ucx with some mixed derek. Given imodium for diarrhea, but she did not take it; diarrhea resolved after that point. This AM, had weakness and was unable to get up. Came back to ED, given levaquin, admitted on ceftriaxone. Denies any dysuria, no change in urine or in urinary frequency. No abd pain. Covid (+). Some mild warmth currently, but hasn't eaten all day. Full ROS performed and neg except as noted above. - Medical History Surgical History: reviewed, includes DM, htn Allergies/Adverse Reactions: Allergies No Known Allergies Allergy (Verified 02/22/20 08:52) Home Medications: Ambulatory Orders Medication Instructions Recorded Glimepiride [Amaryl] 4 mg PO BID 10/12/16 Losartan Potassium 25 mg PO DAILY 02/22/20 [place]-3 Fatty Acids/Fish Oil [Fish 1 cap PO DAILY 02/22/20 Oil 1,000 mg Capsule] Pantoprazole Sodium [Protonix] 40 mg PO DAILY 02/22/20 Paroxetine [Paxil] 20 mg PO DAILY 02/22/20 metFORMIN HCl [Glucophage] 1,000 mg PO BIDCM 02/22/20 metFORMIN HCl [Glucophage] 500 mg PO DAILY@1200 02/22/20 - Social History SMOKING STATUS:: Never smoker Vital Signs Temp Pulse Resp BP Pulse Ox 97.8 F 80 23 H 165/75 H 97 02/22/20 15:01 02/22/20 15:01 02/22/20 15:01 02/22/20 15:01 02/22/20 15:01 Oxygen Delivery Method Room Air Weight: 82.1 kg Body Mass Index (BMI) 32.1 Finger Stick Blood Glucose 196 Laboratory Tests Past 24 Hrs 11/13/20 11/13/20 11/13/20 09:00 09:00 09:00 WBC 6.7 RBC 3.94 L Hgb 12.1 Hct 37.9 MCV 96.2 MCH 30.7 MCHC 31.9 L RDW Std Deviation 46.1 H RDW Coeff of Ed 12.9 Plt Count 190 MPV 11.4 Immature Gran % (Auto) 0.800 Neut % (Auto) 73.6 H Lymph % (Auto) 17.0 L [place] % (Auto) 7.4 Eos % (Auto) 0.9 Baso % (Auto) 0.3 Absolute Neuts (auto) 4.9 Absolute Lymphs (auto) 1.13 Nucleated RBC % 0 D-Dimer Quant (PE/DVT) 0.82 H* Sodium 139 Potassium 4.9 Chloride 109 H Carbon Dioxide 25.0 Anion Gap 5 BUN 23 H Creatinine 1.41 H Estim Creat Clear Calc 27.20 Est GFR (MDRD) Af Amer 46 L Est GFR (MDRD) Non-Af 38 L BUN/Creatinine Ratio 16.3 Glucose 69 L Calcium 9.3 Magnesium Ferritin Lactate Dehydrogenase C-React Prot Ext Range Urine Color Urine Clarity Urine pH Ur Specific [place] Urine Protein Urine Glucose (UA) Urine Ketones Urine Occult Blood Urine Nitrite Urine Bilirubin Urine Urobilinogen Ur Leukocyte Esterase Urine RBC Urine WBC Ur Squamous Epith Cells Urine Bacteria Urine Mucus COVID-19 (MARY) 02/22/20 02/22/20 02/22/20 09:00 11:30 12:18 WBC RBC Hgb Hct MCV MCH MCHC RDW Std Deviation RDW Coeff of Ed Plt Count MPV Immature Gran % (Auto) Neut % (Auto) Lymph % (Auto) [place] % (Auto) Eos % (Auto) Baso % (Auto) Absolute Neuts (auto) Absolute Lymphs (auto) Nucleated RBC % D-Dimer Quant (PE/DVT) Sodium Potassium Chloride Carbon Dioxide Anion Gap BUN Creatinine Estim Creat Clear Calc Est GFR (MDRD) Af Amer Est GFR (MDRD) Non-Af BUN/Creatinine Ratio Glucose Calcium Magnesium 1.2 L Ferritin 141 Lactate Dehydrogenase 167 C-React Prot Ext Range 49.40 H Urine Color Yellow Urine Clarity Sl. Cloudy Urine pH 5.0 Ur Specific [place] 1.020 Urine Protein 15 H Urine Glucose (UA) Normal Urine Ketones Negative Urine Occult Blood 10 H Urine Nitrite Negative Urine Bilirubin Negative Urine Urobilinogen Normal Ur Leukocyte Esterase 500 H Urine RBC 0 SEEN Urine WBC 25-50 SEEN Ur Squamous Epith Cells 0-5 SEEN Urine Bacteria 2+ Urine Mucus 0 SEEN COVID-19 (MARY) Positive - Other Studies Radiology: [] reviewed cxr images Other Studies: [] Route of nutrition/ use of supplements: [] Nutritional Intake: [] IV Site: [] Rodriguez Catheter: [] - Physical Exam General: Alert, Oriented x3, Cooperative, No apparent distress HEENT: Atraumatic, PERRLA, EOMI Neck: Supple, No Nodes Lungs: Clear to auscultation, Diminished Cardiovascular: Regular rate, Regular Rhythm Abdomen: Soft, Non Tender, Non-Distended Extremities: No edema Skin: No rashes IV Site: Peripheral, without redness Musculoskeletal: No Tenderness to Palpation of Joints or Extremities Neurological: Cranial nerves II-XII grossly intact - Assessment/Plan Antibiotics: [] Assessment/Plan: [] covid with diarrhea, MARLENI - seems to be on tail end of covid infection with diarrhea as primary symptom. Children have had covid as well in the past few weeks. MARLENI improving. On RA, breathing well. Doubt bacterial pneumonia given cxr appearance, normal oxygenation, and lack of respiratory symptoms. Does have mild pyuria (25-50 wbc on UA) but no urinary symptoms. Ucx 11 with 50-80k mixed derek which may be related to recent diarrhea. She is on ceftriaxone now after dose of levaquin. Doubt that she needs abx, but ok to continue and see her and the results in the AM. No need for steroids or covid treatment at this point from my perspective given her overall O2 level. Will follow, thank you, d/w nursing
[2020-02-22 16:40] LABS: Bedside Glucose 41 mg/dL (70-110)
[2020-02-22] MEDS: Dextrose 5%/0.9% NaCl 1,000 ML 100 ML IV (17:02)
[2020-02-22] MEDS: Dextrose 50%-Water 25 GM/50 ML DISP.SYRIN IV (17:12)
[2020-02-22 17:30] LABS: Bedside Glucose 37 mg/dL (70-110)
[2020-02-22 17:45] LABS: Bedside Glucose 119 mg/dL (70-110)
[2020-02-22 17:51] LABS: Procalcitonin < 0.04 ng/mL (0.00-0.09)
[2020-02-22] MEDS: Insulin Lispro 100 UNIT/ML INSULN.PEN SC (20:31)
[2020-02-22] MEDS: Magnesium Sulfate 4gm/100mL 4 GM/100 ML IV.SOLN. IV (20:31)
[2020-02-22 21:16] LABS: Bedside Glucose 244 mg/dL (70-110)
[2020-02-23] VITALS (7 sets, daily range): BP systolic 134–156; BP diastolic 69–71; PULSE 76–89; RESP 16–18; TEMP 36.8–37.4; O2SAT 95–100
[2020-02-23] MEDS: Dextrose 5%/0.9% NaCl 1,000 ML 100 ML IV (00:41)
[2020-02-23] MEDS: Acetaminophen 325 MG Tablet 650 MG PO (00:42)
[2020-02-23] MEDS: Insulin Lispro 100 UNIT/ML INSULN.PEN SC ×2 (06:21→12:05)
[2020-02-23 06:31] LABS: Bedside Glucose 252 mg/dL (70-110)
[2020-02-23 06:35] LABS: Bedside Glucose 233 mg/dL (70-110)
--- NOTE | 2020-02-23 07:24 | PN_ITS ---
Patient Problems: Active and Suspected Problems COVID-19 (Acute) UTI (urinary tract infection) (Acute) Type 2 diabetes mellitus with hypoglycemia (Acute) Vitals/I&O's: Vital Signs Temp Pulse Resp BP Pulse Ox 98.3 F 78 18 125/59 H 98 02/23/20 05:10 02/23/20 05:10 02/23/20 05:10 02/23/20 05:10 02/23/20 05:10 Oxygen Delivery Method Room Air Weight: 186 lb 11.704 oz Body Mass Index (BMI) 32.1 Finger Stick Blood Glucose 196 Intake and Output for Last 24 Hours 02/21/20 02/22/20 02/23/20 23:59 23:59 23:59 Intake Total 650 / 650 1265 / 1265 Output Total 250 / 250 450 / 450 Balance 400 / 400 815 / 815 Microbiology Past 72 Hours 02/22/20 16:50 Mucosa - Nasopharyngeal Respiratory Panel (PCR) - Final 02/22/20 18:30 Urine, Clean Catch Legionella Antigen - Final 02/22/20 18:30 Urine, Clean Catch Streptococcus pneumoniae Antigen (M - Fin al Laboratory Results 02/22/20 09:00: WBC 6.7, RBC 3.94 L, Hgb 12.1, Hct 37.9, MCV 96.2, MCH 30.7, MCHC 31.9 L, RDW Std Deviation 46.1 H, RDW Coeff of Ed 12.9, Plt Count 190, MPV 11.4, Immature Gran % (Auto) 0.800, Neut % (Auto) 73.6 H, Lymph % (Auto) 17.0 L, [place] % (Auto) 7.4, Eos % (Auto) 0.9, Baso % (Auto) 0.3, Absolute Neuts (auto) 4.9, Absolute Lymphs (auto) 1.13, Nucleated RBC % 0 02/22/20 09:00: Sodium 139, Potassium 4.9, Chloride 109 H, Carbon Dioxide 25.0, Anion Gap 5, BUN 23 H, Creatinine 1.41 H, Estim Creat Clear Calc 27.20, Est GFR (MDRD) Af Amer 46 L, Est GFR (MDRD) Non-Af 38 L, BUN/Creatinine Ratio 16.3, Glucose 69 L, Calcium 9.3 02/22/20 09:00: D-Dimer Quant (PE/DVT) 0.82 H* 02/22/20 09:00: Magnesium 1.2 L, Ferritin 141, Lactate Dehydrogenase 167, C- React Prot Ext Range 49.40 H 02/22/20 11:30: Urine Color Yellow, Urine Clarity Sl. Cloudy, Urine pH 5.0, Ur Specific [place] 1.020, Urine Protein 15 H, Urine Glucose (UA) Normal, Urine Ketones Negative, Urine Occult Blood 10 H, Urine Nitrite Negative, Urine Bilirubin Negative, Urine Urobilinogen Normal, Ur Leukocyte Esterase 500 H, Urine RBC 0 SEEN, Urine WBC 25-50 SEEN, Ur Squamous Epith Cells 0-5 SEEN, Urine Bacteria 2+, Urine Mucus 0 SEEN 02/22/20 12:18: COVID-19 (MARY) Positive 02/22/20 16:25: Procalcitonin < 0.04 02/22/20 16:27: POC Glucose 41 L* 02/22/20 16:59: POC Glucose 37 L* 02/22/20 17:37: POC Glucose 119 H 02/22/20 20:24: POC Glucose 244 H 02/23/20 00:30: POC Glucose 233 H 02/23/20 06:19: POC Glucose 252 H Current Medications Acetaminophen (Acetaminophen 325 Mg Tablet) 650 mg PO Q6H PRN PRN PRN Reason: Pain Score 1-10/Temp > 100.7 F Last Admin: 02/23/20 00:42 Dose: 650 mg Documented by: Al Hydroxide/Mg Hydroxide (Mag Hydrox/Al Hydrox/Simeth 30 Ml Udc) 30 ml PO Q6H PRN PRN PRN Reason: Gastric Burning Albuterol Sulfate (Albuterol 2.5 Mg/3 Ml Vial.Neb.) 2.5 mg INHALATION Q2H PRN PRN PRN Reason: Dyspnea, wheezing Dextrose (Dextrose 50%-Water 25 Gm/50 Ml Disp.Syrin) 0 gm IV X1 PRN; Protocol PRN Reason: Hypoglycemia Last Admin: 02/22/20 17:12 Dose: 25 gm Documented by: Enoxaparin Sodium (Enoxaparin 30 Mg/0.3 Ml Syringe) 30 mg SC DAILY LILLY Glucagon (Glucagon 1 Mg/Ml Syringe) 1 mg IM .X1 PRN PRN Reason: Hypoglycemia Guaifenesin (Guaifenesin 10 Ml Udc (200mg/10ml)) 20 ml PO Q4H PRN PRN PRN Reason: COUGH Hydralazine HCl (Hydralazine 20 Mg/Ml Vial) 10 mg IV Q4H PRN PRN PRN Reason: SBP > 160 Ceftriaxone Sodium 2 gm/ (Sodium Chloride) 50 mls @ 100 mls/hr IV Q24 LILLY Dextrose/Sodium Chloride (Dextrose 5%/0.9% Nacl) 1,000 mls @ 100 mls/hr IV .Q10H [facility] Last Admin: 02/23/20 00:41 Dose: 100 mls/hr Documented by: Insulin Human Lispro (Insulin Lispro 100 Unit/Ml Insuln.Pen) 0 unit SC ACHS [facility]; Protocol Last Admin: 02/23/20 06:21 Dose: 3 units Documented by: Loperamide HCl (Loperamide 2 Mg Capsule) 2 mg PO 4X/DAY PRN PRN Reason: Diarrhea Magnesium Hydroxide (Magnesium Hydroxide 30 Ml Udc) 30 ml PO DAILY PRN PRN PRN Reason: Constipation Melatonin (Melatonin 3 Mg Tablet) 3 mg PO QHS PRN PRN PRN Reason: INSOMNIA Morphine Sulfate (Morphine 2 Mg/Ml Syringe) 2 mg IV Q3H PRN PRN PRN Reason: Pain Score 6-10 Ondansetron HCl (Ondansetron 4 Mg/2 Ml Vial) 4 mg IV Q8H PRN PRN PRN Reason: NAUSEA/VOMITING Oxycodone HCl (Oxycodone 5 Mg Tablet) 5 mg PO Q4H PRN PRN PRN Reason: Pain Score 4-5 Paroxetine HCl (Paroxetine 20 Mg Tablet) 20 mg PO DAILY [facility] Prochlorperazine Edisylate (Prochlorperazine 10 Mg/2 Ml Vial) 5 mg IV Q4H PRN PRN PRN Reason: Breakthrough nausea/vomiting Psyllium Hydrophilic Mucilloid (Psyllium 1 Packet) 1 packet PO DAILY PRN PRN PRN Reason: Constipation Senna/Docusate Sodium (Senna/Docusate Sodium 1 Tablet) 2 tablet PO BID PRN PRN PRN Reason: Constipation Sodium Chloride (0.9% Saline Lock 10 Ml Syringe) 10 - 40 ml IV UD PRN PRN Reason: SALINE FLUSH Tamsulosin HCl (Tamsulosin Hcl 0.4 Mg Capsule) 0.4 mg PO DAILY@1700 LILLY Throat Lozenges (Benzocaine/Menthol 1 Lozenge) 1 lozenge MUCOUS MEM Q2H PRN PRN PRN Reason: SORE THROAT STROKE Vital Signs/Narrative: Vital Signs Temp Pulse Resp BP Pulse Ox 02/23/20 05:10 98.3 F 78 18 125/59 H 98 Medical Necessity - Tobacco Use Smoking Status: Never smoker Tobacco Use: Non-smoker Assessment/Plan All Active Problems COVID-19 (Acute) UTI (urinary tract infection) (Acute) Type 2 diabetes mellitus with hypoglycemia (Acute)
[2020-02-23] MEDS: Paroxetine 20 MG Tablet PO (08:37)
[2020-02-23] MEDS: Enoxaparin 30 MG/0.3 ML Syringe SC (08:37)
[2020-02-23 10:38] LABS: Absolute Lymphocyte Count 1.15 X10^3/uL (0.83-4.51); Absolute Neutrophil Count 2.8 X10^3/uL (2.0-7.7); Basophil# 0.02 X10^3/uL; Basophil% 0.5 % (0-1); Eosinophil# 0.04 X10^3/uL; Eosinophils% 0.9 % (0-5); Hematocrit 32.5 % (37-47); Hemoglobin 10.3 g/dL (12.0-15.0); Lymphocyte # 1.15 X10^3/ul (4.0); Lymphocyte % 26.2 % (19-41); Mean Corp Hgb Conc 31.7 g/dL (32-36); Mean Corpuscular Hgb 30.4 pg (27.0-32.0); Mean Corpuscular Volume 95.9 fL (81-99); Mean Platelet Vol. 12.2 fl (6.2-12.0); Monocyte# 0.37 X10^3/uL; Monocyte% 8.4 % (0-10); NRBC Flagged by Analyzer 0 % (0-5); Neutrophil # 2.77 X10^3/uL (2.7-7.7); Neutrophil % 63.1 % (47-70); Platelet Count 181 K/mm3 (150-450); RBC Distribution Width CV 13.2 % (11.6-14.6); RBC Distribution Width SD 46.8 fl (35.1-43.9); Red Blood Count 3.39 M/mm3 (4.2-5.4); White Blood Count 4.4 K/mm3 (4.4-11.0)
[2020-02-23 11:08] LABS: ALB/GLOB Ratio 0.6 RATIO (0.9-2.4); AST(SGOT) 19 U/L (15-37); Alanine Aminotransfer ALT/SGPT 22 U/L (13-56); Albumin, Serum 2.5 g/dL (3.2-5.0); Alkaline Phosphatase 56 U/L (45-117); Anion Gap 6 (5-15); BUN 17 mg/dL (7-18); BUN/Creat Ratio 13.2 RATIO (10-20); Calcium,Total 8.4 mg/dL (8.5-10.1); Chloride 108 mmol/L (98-107); Creatinine, Serum 1.29 mg/dL (0.55-1.02); EST Glomerular Filtration Rate 42 mL/min (>60); Est Glom Filt Rate - Afr Amer 51 mL/min (>60); Estimated Creatinine Clearance 29.73 ml/min; Globulin 3.9 g/dL (2.2-4.2); Glucose 181 mg/dL (74-106); Magnesium 2.1 mg/dL (1.6-2.6); Potassium 4.7 mmol/L (3.5-5.1); Protein, Total 6.4 g/dL (6.4-8.2); Sodium Level 138 mmol/L (136-145)
[2020-02-23] MEDS: 0.9% Saline Lock 10 ML Syringe IV (12:03)
[2020-02-23 12:41] LABS: Bedside Glucose 229 mg/dL (70-110)
--- NOTE | 2020-02-23 13:50 | DCINST_ITS ---
- Discharge Diagnoses Current Active Problems: Current Active and Chronic Problems 1. Recent dyspnea, cough, fever, chills, diarrhea secondary to Acute Viral Syndrome, COVID-19 2. ? Acute Urinary Tract Infection, Mixed Organisms, Ruled out 3. Diabetes mellitus type II with symptomatic hypoglycemia, Resolved 4. Chronic Kidney Disease Stage III with recent renal insufficiency associated with #1, resolved 5. Hypertension 6. Anxiety and depression 7. GERD You will use the following diet at home:: Calorie/Carbohydrate Controlled (specify 1200, 1400, etc) - 1800 ADA/Cardiac diet. Please eat a small portion with each meal even if you do not have an appetite. Your food should be the consistency of: Regular Your liquids should be the consistency of: Regular/Thin Discharge Activity: - - Please continue at least mild activity, including w alking in the home. Please also continue incentive spirometer at discharge 10x/hr 7a-7p. Weight Bearing Status: Weight bearing as tolerated Call your doctor if you observe: Fever of 101 or Higher, Inability to urinate, Inability to have a bowel movement, Shortness of breath, Dizziness, Fainting spells, Chest pain, Uncontrolled pain Instructions: Hypoglycemia (Low Blood Sugar), Oral Therapy for Type 2 Diabetes, ED Hypoglycemia Oral Diabetic Medicine Additional Instructions: When can positive COVID-19 patients be discharged, what are the requirements and what needs to be in place for discharge? ?They can be discharged when they are clinically stable. ?They do not need to meet criteria for transmission-based precautions to be discharged as these may be continued at home. ?Patient needs to be able to call for assistance if worsens. ?Members in the household must not be at increased risk of COVID-19 (elderly, , immunosuppressed, severe medical comorbidities). Home going instructions: ?Patient to continue similar isolation as in hospital until isolation complete (14 days from initial onset of symptoms). Transmission-based Precaution Timeline: ?Patients with a confirmed COVID-19 should remain under home isolation precautions for 14 days in addition to 72 hours complete resolution of fever and symptoms (cough, dyspnea, myalgia, sore throat) without antipyretic medication. ?Further testing is not required beyond this unless there was noted organ dysfunction. Follow-up Care: ?The primary care should be informed of a COVID-19 positive test. ?Please consider early virtual primary visit follow-up or in person if your quarantine is complete. Allergies/Adverse Reactions: Allergies No Known Allergies Allergy (Verified 02/22/20 08:52) Medications to take at Discharge Glimepiride [Amaryl] 4 mg PO BID 10/12/16 Losartan Potassium 25 mg PO DAILY 02/22/20 [place]-3 Fatty Acids/Fish Oil [Fish Oil 1,000 mg Capsule] 1 cap PO DAILY 02/22/20 Pantoprazole Sodium [Protonix] 40 mg PO DAILY 02/22/20 Paroxetine [Paxil] 20 mg PO DAILY 02/22/20 metFORMIN HCl [Glucophage] 1,000 mg PO BIDCM 02/22/20 metFORMIN HCl [Glucophage] 500 mg PO DAILY@1200 02/22/20 Primary Care Physician: Jaciel Barragan MD [Primary Care Provider] - Please follow up with your Primary Care Physician in: Please follow-up within 3- 5 days to review admission. Test Results: Test results from this visit will be discussed in further detail at your follow- up appointment, if applicable. Proposed Discharge Date: 02/23/20
--- NOTE | 2020-02-23 13:55 | PCM.DC.SUM ---
Discharge Date and Diagnosis - Problem List Patient Problems: Active and Suspected Problems COVID-19 (Acute) UTI (urinary tract infection) (Acute) Type 2 diabetes mellitus with hypoglycemia (Acute) Date of Admission: 02/22/20 Date of Discharge: 02/23/20 - Primary Discharge Diagnosis Acute Problems: Active Problems 1. Recent dyspnea, cough, fever, chills, diarrhea with severe debility, weakness secondary to Acute Viral Syndrome, COVID-19 2. ? Acute Urinary Tract Infection, Mixed Organisms, Ruled out 3. Diabetes mellitus type II with symptomatic hypoglycemia, Resolved 4. Chronic Kidney Disease Stage III with recent renal insufficiency associated with #1, resolved 5. Hypertension 6. Anxiety and depression 7. GERD - Secondary Discharge Diagnosis Chronic Problems: Chronic Problems Chronic kidney disease, stage III (moderate) (Chronic) Hypertension (Chronic) Anxiety and depression (Chronic) GERD (gastroesophageal reflux disease) (Chronic) Hospital Course and Treatment Dr. Zhao Infectious disease Operations: None Procedures: EKG Summary of Care Provided: The patient is a 79 y/o F w/ PMHx: Obesity, HTN, GERD, Anxiety and Depression, Diabetes mellitus type II who presented to the [facility] ED on 02/22/20 with history of cough, mild dyspnea, chills with diaphoresis, subjective fever in addition to diarrhea approximately 3 weeks prior noting that several family members had been ill and had been around her with Covid with recent discontinuation of quarantine however patient continued to have fatigue, malaise prompting ED evaluation 02/19/2020 for these complaints with urinalysis at that time unremarkable with urine culture with mixed derek administered Imodium at that time for diarrhea which eventually resolved however she now returns secondary to severity of increased debility and weakness, even unable to get up prompting evaluation. Work-up in the ED included T 97.5, heart rate 81, BP initially 170/82, respiratory rate 18, 97% on room air, CBC with WC 6.7, hemoglobin 12.1, platelet 190 without marked shift, D-dimer 0.82, BMP with chloride 109, BUN/creatinine 23/1.42, glucose 69, magnesium 1.2, urinalysis with specific gravity 1.020, nitrite negative, leukocyte esterase 500 however urine WBCs 25-50 with 2+ urine bacteria, Covid testing positive, urine culture pending per ED, chest x-ray read as a focal left lower lobe infiltrate but per review with the ED physician lower suspicion. The patient was admitted to the Covid floor to be cautious, , maintained appropriate oxygenation on room air, will maintain on oxygen with wean as tolerated to room air, HOB, IS parameters, Covid panel obtained upon admission with D-dimer 0.82 nearly normal when age-adjusted, CRP 49.40, procalcitonin less than 0.04, ferritin 141, LDH 167, continued supportive care including q 2 hour turning including prone given no prone bed availability and judicious hydration. UCx with mixed organisms and given asymptomatic abx not continued per ID recommendation. Patient discharged to home with her son with home health set-up given severity debility and weakness. Patient clinically improved quicker than expected and felt appropriate for discharge with family assistance only and son amenable. Requested that patient continue with baby aspirin 81 mg daily x 14 days at discharge. DAY OF DISCHARGE PROGRESS NOTE: Subjective: Patient without acute event overnight per self and nursing report. Patient notes feeling improved, notes feeling less weak and fatigued. Still feeling too weak to go home by herself but minimal to transition to her son's home. Patient denies fever, chills, nausea, emesis, abdominal pain, chest pain or dyspnea. Patient agreeable to discharge to home with her son. Patient will be discharged with follow-up with primary care physician within 3-5 days. Objective: T 98.3, heart 78, BP 134/71, respiratory rate 16, 95% room air. Physical Examination: General: awake, alert, oriented x 3 and cooperative, seated upright in the [facility] bedside chair, NAD, less fatigued appearing. Skin: normal color, turgor, no icterus, cyanosis. HEENT: AT/NC, EOMI, PERRLA, improved MMM. Lungs: Decreased breath sounds, greater bases, no obvious distress, no rales, ronchi or wheezing. Heart: Regular rate and rhythm; no gallop, rub audible. Abdomen: soft, obese, NTTP, ND, normal BS. Extremities: no cyanosis, clubbing, or edema. Neurological: patient awake, alert, oriented x 3; cognitive function intact; pupils equally reactive to light and accomodation; cranial nerves II-XII grossly normal, moving all 4 extremities, no focal deficits, strength improved, moderate global decrease secondary to acute presentation. Psychiatric: affect appears less fatigued, no acute evidence of depressive or anxiety feelings. Assessment and Plan: Please see hospital summary above. Patient Problems: Active and Suspected Problems COVID-19 (Acute) UTI (urinary tract infection) (Acute) Type 2 diabetes mellitus with hypoglycemia (Acute) - Physical Exam Vitals/I&O's: Vital Signs Temp Pulse Resp BP Pulse Ox 98.3 F 76 16 134/71 H 95 02/23/20 08:24 02/23/20 08:25 02/23/20 08:24 02/23/20 08:24 02/23/20 11:41 Oxygen Delivery Method Room Air Weight: 186 lb 11.704 oz Body Mass Index (BMI) 32.1 Finger Stick Blood Glucose 196 Intake and Output for Last 24 Hours 02/21/20 02/22/20 02/23/20 23:59 23:59 23:59 Intake Total 650 / 650 2755.00 / 2755.00 Output Total 250 / 250 450 / 450 Balance 400 / 400 2305.00 / 2305.00 Microbiology Past 72 Hours 02/22/20 11:30 Urine, Clean Catch Urine Culture - Final Mixed Gram Pos & Gram Neg Org 02/22/20 16:50 Mucosa - Nasopharyngeal Respiratory Panel (PCR) - Final 02/22/20 18:30 Urine, Clean Catch Legionella Antigen - Final 02/22/20 18:30 Urine, Clean Catch Streptococcus pneumoniae Antigen (M - Final Laboratory Results 02/22/20 09:00: D-Dimer Quant (PE/DVT) 0.82 H* 02/22/20 09:00: Magnesium 1.2 L, Ferritin 141, Lactate Dehydrogenase 167, C-React Prot Ext Range 49.40 H 02/22/20 16:25: Procalcitonin < 0.04 02/22/20 16:27: POC Glucose 41 L* 02/22/20 16:59: POC Glucose 37 L* 02/22/20 17:37: POC Glucose 119 H 02/22/20 20:24: POC Glucose 244 H 02/23/20 00:30: POC Glucose 233 H 02/23/20 06:19: POC Glucose 252 H 02/23/20 09:10: WBC 4.4, RBC 3.39 L, Hgb 10.3 L, Hct 32.5 L, MCV 95.9, MCH 30.4, MCHC 31.7 L, RDW Std Deviation 46.8 H, RDW Coeff of Ed 13.2, Plt Count 181, MPV 12.2 H, Immature Gran % (Auto) 0.900, Neut % (Auto) 63.1, Lymph % (Auto) 26.2, Kinney % (Auto) 8.4, Eos % (Auto) 0.9, Baso % (Auto) 0.5, Absolute Neuts (auto) 2.8, Absolute Lymphs (auto) 1.15, Nucleated RBC % 0 02/23/20 09:10: Sodium 138, Potassium 4.7, Chloride 108 H, Carbon Dioxide 24.0, Anion Gap 6, BUN 17, Creatinine 1.29 H, Estim Creat Clear Calc 29.73, Est GFR (MDRD) Af Amer 51 L, Est GFR (MDRD) Non-Af 42 L, BUN/Creatinine Ratio 13.2, Glucose 181 H, Calcium 8.4 L, Magnesium 2.1, Total Bilirubin 0.30, AST 19, ALT 22, Alkaline Phosphatase 56, Total Protein 6.4, Albumin 2.5 L, Globulin 3.9, Albumin/Globulin Ratio 0.6 L 02/23/20 12:04: POC Glucose 229 H Current Medications Acetaminophen (Acetaminophen 325 Mg Tablet) 650 mg PO Q6H PRN PRN PRN Reason: Pain Score 1-10/Temp > 100.7 F Last Admin: 02/23/20 00:42 Dose: 650 mg Documented by: Al Hydroxide/Mg Hydroxide (Mag Hydrox/Al Hydrox/Simeth 30 Ml Udc) 30 ml PO Q6H PRN PRN PRN Reason: Gastric Burning Albuterol Sulfate (Albuterol 2.5 Mg/3 Ml Vial.Neb.) 2.5 mg INHALATION Q2H PRN PRN PRN Reason: Dyspnea, wheezing Dextrose (Dextrose 50%-Water 25 Gm/50 Ml Disp.Syrin) 0 gm IV X1 PRN; Protocol PRN Reason: Hypoglycemia Last Admin: 02/22/20 17:12 Dose: 25 gm Documented by: Enoxaparin Sodium (Enoxaparin 30 Mg/0.3 Ml Syringe) 30 mg SC DAILY LILLY Last Admin: 02/23/20 08:37 Dose: 30 mg Documented by: Glucagon (Glucagon 1 Mg/Ml Syringe) 1 mg IM .X1 PRN PRN Reason: Hypoglycemia Guaifenesin (Guaifenesin 10 Ml Udc (200mg/10ml)) 20 ml PO Q4H PRN PRN PRN Reason: COUGH Hydralazine HCl (Hydralazine 20 Mg/Ml Vial) 10 mg IV Q4H PRN PRN PRN Reason: SBP > 160 Ceftriaxone Sodium 2 gm/ (Sodium Chloride) 50 mls @ 100 mls/hr IV Q24 [facility] Last Infusion: 02/23/20 09:07 Dose: Infused Documented by: Insulin Human Lispro (Insulin Lispro 100 Unit/Ml Insuln.Pen) 0 unit SC [facility]; Protocol Last Admin: 02/23/20 12:05 Dose: 2 units Documented by: Loperamide HCl (Loperamide 2 Mg Capsule) 2 mg PO 4X/DAY PRN PRN Reason: Diarrhea Magnesium Hydroxide (Magnesium Hydroxide 30 Ml Udc) 30 ml PO DAILY PRN PRN PRN Reason: Constipation Melatonin (Melatonin 3 Mg Tablet) 3 mg PO QHS PRN PRN PRN Reason: INSOMNIA Morphine Sulfate (Morphine 2 Mg/Ml Syringe) 2 mg IV Q3H PRN PRN PRN Reason: Pain Score 6-10 Ondansetron HCl (Ondansetron 4 Mg/2 Ml Vial) 4 mg IV Q8H PRN PRN PRN Reason: NAUSEA/VOMITING Oxycodone HCl (Oxycodone 5 Mg Tablet) 5 mg PO Q4H PRN PRN PRN Reason: Pain Score 4-5 Paroxetine HCl (Paroxetine 20 Mg Tablet) 20 mg PO DAILY [facility] Last Admin: 02/23/20 08:37 Dose: 20 mg Documented by: Prochlorperazine Edisylate (Prochlorperazine 10 Mg/2 Ml Vial) 5 mg IV Q4H PRN PRN PRN Reason: Breakthrough nausea/vomiting Psyllium Hydrophilic Mucilloid (Psyllium 1 Packet) 1 packet PO DAILY PRN PRN PRN Reason: Constipation Senna/Docusate Sodium (Senna/Docusate Sodium 1 Tablet) 2 tablet PO BID PRN PRN PRN Reason: Constipation Sodium Chloride (0.9% Saline Lock 10 Ml Syringe) 10 - 40 ml IV UD PRN PRN Reason: SALINE FLUSH Last Admin: 02/23/20 12:03 Dose: 10 ml Documented by: Tamsulosin HCl (Tamsulosin Hcl 0.4 Mg Capsule) 0.4 mg PO DAILY@1700 [facility] Throat Lozenges (Benzocaine/Menthol 1 Lozenge) 1 lozenge MUCOUS MEM Q2H PRN PRN PRN Reason: SORE THROAT Discharge Activity: - - Please continue at least mild activity, including walking in the home. Please also continue incentive spirometer at discharge 10x/hr 7a-7p. Weight Bearing Status: Weight bearing as tolerated Call your doctor if you observe: Fever of 101 or Higher, Inability to urinate, Inability to have a bowel movement, Shortness of breath, Dizziness, Fainting spells, Chest pain, Uncontrolled pain Home Medications: Medications to take at Discharge Glimepiride [Amaryl] 4 mg PO BID 10/12/16 Losartan Potassium 25 mg PO DAILY 02/22/20 [place]-3 Fatty Acids/Fish Oil [Fish Oil 1,000 mg Capsule] 1 cap PO DAILY 02/22/20 Pantoprazole Sodium [Protonix] 40 mg PO DAILY 02/22/20 Paroxetine [Paxil] 20 mg PO DAILY 02/22/20 metFORMIN HCl [Glucophage] 1,000 mg PO BIDCM 02/22/20 metFORMIN HCl [Glucophage] 500 mg PO DAILY@1200 02/22/20 Aspirin [Aspirin, Baby] 81 mg PO DAILY@0800 #14 tab.chew 02/23/20 Primary Care Physician: Jaciel Barragan MD [Primary Care Provider] - Please follow up with your Primary Care Physician in: Please follow-up within 3-5 days to review admission. Patient Instructions: Hypoglycemia (Low Blood Sugar), Oral Therapy for Type 2 Diabetes, ED Hypoglycemia Oral Diabetic Medicine Disposition: Home with Home Health Minutes spent on discharge:: 35 Patient Condition:: Fair Medical Necessity - Tobacco Use Smoking Status: Never smoker Tobacco Use: Non-smoker Meaningful Use Info Meaningful Use Diagnoses (Choose all that apply): None applicable Inpatient E&M: 05847 Disch Hosp
--- NOTE | 2020-02-23 14:09 | CM.UR ---
Addendum entered by Leigha Pablo 02/23/20 14:35: Spoke with on-call nurse from [facility]. Who states they are taking Covid patients as well as ones in [place]. States she will letting MO Mayer, director know about referral to confirm. Fax order with son's correct address on it and noted that she is covid +. Received call from [facility] who states they won't be able to do SOC til Tuesday. I confirmed that Tuesday is fine. Biju Pablo RN, CCM. Addendum entered by Leigha Pablo 02/23/20 14:19: Contacted son and spoke with him. Confirmed his address which is different from what is in system. Had no preference to [facility] agency. Agreeable to [facility]. Biju Pablo RN, CCM. Original Note: MARQUITA HOLLIDAY ASSESSMENT: Met face to face with patient in room for initial transition planning/care coordination assessment. MARQUITA HOLLIDAY introduced self and role at [facility]. Patient is alert an oriented. Patient willing to participate in assessment. Care providers, pharmacy, and demographics verified. Patient states he has no further needs or concerns at this time. CM to follow for discharge planning needs that may arise. PCP: Dr. Terence Barragan Specialists: none. Said saw GI doctors in [place] awhile ago for EGD and colonoscopy but can't remember name. [facility] Prescription Benefit: yes Living Will/HPOA: Trent Beaver LNOK: Elizabeth, trent and Lamine Living Arrangements: Lives in 1 story condo with basement. Has chair lift to basement. Usually independent with ADLs. Transportation: self DME: States has canes, walkers, shower chair, grab bars and chair lift. HHC/SNF: She hasn't had any. Had HHC for her but can't remember the company. No preference. Goal: Home, denies needs. Disposition Plan: Home with [facility] Biju Pablo RN, CCM.
--- NOTE | 2020-02-25 15:50 | CASEMGMT ---
Home Health Follow-up: Call received from Ce with [facility] stating the [place] address is out of their service area. Call placed to pt's son Jose L to notify of this. Jose L states they do not have an alternate preference in HH providers. Calls placed to [facility] (do not have the staff), [facility] (cannot accept), [facility] (do not service this area), [facility] (do not service this area), and [facility] [place] [facility] (neither service this area). Unable to locate detention for pt. [facility] able to provide skilled home PT with a start of care on . Call placed to pt's son who states he feels his mother is improving and that home therapy without detention will be ok. He feels they have a good control of her blood sugars. He relays that she has been up with her walker, has an increased appetite and denies any breathing concerns. Plan: [facility] with start of care on 02/28/2020. Ike Tinajero RN CM
== END 2020-02-23 15:25 | disposition home health service (06) | DRG 179 ==
LOC: ED 12:42 → MS2 13:54
PROVIDERS: Admitting Provider Family Medicine; Emergency Provider Emergency Medicine; PCP Family Medicine; Visit Provider Family Medicine
DX: U07.1 COVID-19 (principal); E11.649 Type 2 diabetes mellitus with hypoglycemia without coma; E11.22 Type 2 diabetes mellitus with diabetic chronic kidney disease; N18.30 Chronic kidney disease, stage 3 unspecified; I12.9 Hypertensive chronic kidney disease with stage 1 through stage 4 chronic kidney disease, or unspecified chronic kidney disease; E11.40 Type 2 diabetes mellitus with diabetic neuropathy, unspecified; Z96.653 Presence of artificial knee joint, bilateral; F32.9 Major depressive disorder, single episode, unspecified; F41.9 Anxiety disorder, unspecified; K21.9 Gastro-esophageal reflux disease without esophagitis; E66.9 Obesity, unspecified; M19.90 Unspecified osteoarthritis, unspecified site; Z68.32 Body mass index [BMI] 32.0-32.9, adult; Z79.84 Long term (current) use of oral hypoglycemic drugs; Z79.899 Other long term (current) drug therapy
CPT/HCPCS: 36415; 71045; 80048; 80053; 81001; 82728; 82962; 83615; 83690; 83735; 84145; 85025; 85379; 86140; 87086; 87088; 87449; 87633; 87635; 93005; 96360; 97161; 97166; 99282; 99285; J7030; J7040; A4216; J0696; U0002

== ENCOUNTER → 2020-10-22 16:12 | Outpatient (CLI) | payer MEDICARE, OTHER, SELFPAY ==
[2020-02-22 14:59] VITALS: BMI 32.1
[2020-10-22 18:11] LABS: Anion Gap 5 (5-15); BUN 33 mg/dL (7-18); BUN/Creat Ratio 21.2 RATIO (10-20); Calcium,Total 9.2 mg/dL (8.5-10.1); Chloride 106 mmol/L (98-107); Creatinine, Serum 1.56 mg/dL (0.55-1.02); EST Glomerular Filtration Rate 34 mL/min (>60); Est Glom Filt Rate - Afr Amer 41 mL/min (>60); Glucose 188 mg/dL (74-106); Potassium 4.9 mmol/L (3.5-5.1); Sodium Level 136 mmol/L (136-145)
== END ==
LOC: LAB 16:16 → MTLAB 16:16
PROVIDERS: PCP Family Medicine; Referring Provider Family Medicine; Visit Provider Family Medicine
DX: E87.5 Hyperkalemia (principal)
CPT/HCPCS: 36415; 80048

== ENCOUNTER → 2020-10-30 11:05 | Outpatient (CLI) | payer MEDICARE, OTHER, SELFPAY ==
[2020-02-22 14:59] VITALS: BMI 32.1
[2020-10-30 13:03] LABS: Anion Gap 6 (5-15); BUN 27 mg/dL (7-18); BUN/Creat Ratio 19.7 RATIO (10-20); Calcium,Total 9.2 mg/dL (8.5-10.1); Chloride 101 mmol/L (98-107); Creatinine, Serum 1.37 mg/dL (0.55-1.02); EST Glomerular Filtration Rate 40 mL/min (>60); Est Glom Filt Rate - Afr Amer 48 mL/min (>60); Glucose 164 mg/dL (74-106); Potassium 5.4 mmol/L (3.5-5.1); Sodium Level 133 mmol/L (136-145)
== END ==
PROVIDERS: PCP Family Medicine; Referring Provider Family Medicine; Visit Provider Family Medicine
DX: E87.5 Hyperkalemia (principal)
CPT/HCPCS: 36415; 80048

== ENCOUNTER → 2020-11-04 10:42 | Outpatient (CLI) | payer MEDICARE, OTHER, SELFPAY ==
[2020-02-22 14:59] VITALS: BMI 32.1
[2020-11-04 13:09] LABS: Anion Gap 8 (5-15); BUN 33 mg/dL (7-18); BUN/Creat Ratio 21.3 RATIO (10-20); Calcium,Total 9.5 mg/dL (8.5-10.1); Chloride 105 mmol/L (98-107); Creatinine, Serum 1.55 mg/dL (0.55-1.02); EST Glomerular Filtration Rate 34 mL/min (>60); Est Glom Filt Rate - Afr Amer 41 mL/min (>60); Glucose 171 mg/dL (74-106); Potassium 4.7 mmol/L (3.5-5.1); Sodium Level 137 mmol/L (136-145)
== END ==
PROVIDERS: PCP Family Medicine; Referring Provider Family Medicine; Visit Provider Family Medicine
DX: E87.5 Hyperkalemia (principal)
CPT/HCPCS: 36415; 80048

== ENCOUNTER 2021-08-11 13:03 | Emergency (ER) | payer MEDICARE, OTHER, SELFPAY ==
[2021-08-11 13:05] VITALS: BP 155/72; PULSE 90; RESP 18; TEMP 36.8; O2SAT 96; BMI 33.2
--- NOTE | 2021-08-11 13:34 | EKG12_ITS ---
Test Reason : SYNCOPE Blood Pressure : / mmHG Vent. Rate : 088 BPM Atrial Rate : 088 BPM P-R Int : 144 ms QRS Dur : 096 ms QT Int : 380 ms P-R-T Axes : 044 -46 072 degrees QTc Int : 459 ms Normal sinus rhythm Left axis deviation Abnormal ECG Confirmed by DELILAH MANZO, MARY ([id number]), supervising film or videotape editor OBED MUÑOZ ([id number]) on 08/12/2021 9:50:08 AM Referred By: Confirmed By:MARY MAZARIEGOS MD
[2021-08-11 13:50] LABS: Absolute Lymphocyte Count 1.78 X10^3/uL (0.83-4.51); Absolute Neutrophil Count 5.9 X10^3/uL (2.0-7.7); Basophil# 0.05 X10^3/uL; Basophil% 0.6 % (0-1); Eosinophils% 2.4 % (0-5); Hematocrit 35.3 % (37-47); Hemoglobin 11.4 g/dL (12.0-15.0); Lymphocyte # 1.78 X10^3/ul (0.83-4.51); Mean Corp Hgb Conc 32.3 g/dL (32-36); Mean Corpuscular Hgb 30.7 pg (27.0-32.0); Mean Corpuscular Volume 95.1 fL (81-99); Mean Platelet Vol. 11.7 fl (6.2-12.0); Monocyte# 0.45 X10^3/uL; Monocyte% 5.3 % (0-10); NRBC Flagged by Analyzer 0 % (0-5); Neutrophil # 5.94 X10^3/uL (2.7-7.7); Platelet Count 226 K/mm3 (150-450); RBC Distribution Width CV 13.5 % (11.6-14.6); RBC Distribution Width SD 46.9 fl (35.1-43.9); Red Blood Count 3.71 M/mm3 (4.2-5.4); White Blood Count 8.5 K/mm3 (4.4-11.0)
--- NOTE | 2021-08-11 14:01 | EDS_ITS ---
HPI History of Present Illness Chief Complaint: Dizziness Informant: patient Narrative Narrative: 81-year-old female presents the emergency room following a near syncopal episode. Patient came to [place] today to eat breakfast and afterwards went to [facility] to buy some hair product that they did not have at the [facility]. The line seemed exceptionally long which is why she typically does not shop at the [facility]. While standing in line she b camilla to get very lightheaded and started to get tunnel vision. Staff members came over and laid her down on the ground and she noted that she was very sweaty. After few minutes she started to feel better and she became concerned about her drive home so she came to the emergency room for evaluation. She denies any chest pain palpitations. She denies any vomiting diarrhea or abdominal pain. [facility] Medical History (Updated 08/11/21 @ 14:[address] Phong Vallecillo DO) Anxiety and depression Chronic kidney disease, stage III (moderate) COVID-19 GERD (gastroesophageal reflux disease) Hypertension Type 2 diabetes mellitus with hypoglycemia Home Medications glimepiride 4 mg PO BID 10/12/16 [History Last Taken 02/21/20 12:00] losartan 25 mg PO DAILY 02/22/20 [History Last Taken 02/21/20] metformin 1,000 mg PO BIDCM 02/22/20 [History Last Taken 02/21/20] metformin 500 mg PO DAILY@1200 02/22/20 [History Last Taken 02/21/20 12:00] omega-3 fatty acids-fish oil 1 cap PO DAILY 02/22/20 [History Last Taken 02/21/20 12:00] pantoprazole 40 mg PO DAILY 02/22/20 [History Last Taken Unknown] paroxetine HCl 20 mg PO DAILY 02/22/20 [History Last Taken 02/21/20] aspirin 81 mg PO DAILY@0800 #14 tab.chew 02/23/20 [Rx Last Taken Unknown] Allergy/AdvReac Type Severity Reaction Status Date / Time No Known Allergies Allergy Verified 08/11/21 13:08 Social History (Updated 08/11/21 @ 14:[address] Phong Vallecillo DO) Smoking Status: Never smoker Tobacco: How many years used: 0 ROS ROS ED Constitutional Constitutional ED: Denies chills, fever(s) or weight loss Eyes Eyes: Denies change in vision or diplopia ENT ENT ED: Denies ear pain, rhinorrhea or sore throat Cardiovascular Cardiovascular: Reports other Details: Near syncope ; Denies chest pain, orthopnea, palpitations or racing heartbeat Respiratory/Chest Respiratory/Chest: Denies cough, dyspnea or orthopnea Gastrointestinal Gastrointestinal: Denies abdominal pain, diarrhea, nausea or vomiting Genitourinary Genitourinary ED: Denies dysuria, hematuria or urinary frequency Musculoskeletal Musculoskeletal: Denies arthralgias or myalgias Integumentary Denies abscess or rash Neurologic Neurologic: Denies headache(s) or weakness Psychiatric Psychiatric: Denies anxiety, depression, suicidal ideation or suicidal thoughts Endocrine Endocrinology: Denies polydipsia, polyphagia or polyuria Allergic/Immunologic Allergic/Immunologic ED: Denies mouth swelling, tongue swelling or urticaria EXAM Physical Exam Const Vital Signs: 08/11/21 13:05 08/11/21 13:12 Temperature 98.2 F Temperature Source Temporal Pulse Rate 90 Respiratory Rate 18 Respiratory Pattern Normal Blood Pressure 155/72 H Blood Pressure Mean 99 Pulse Ox 96 Oxygen Delivery Method Room Air Positive well nourished and well developed General Appearance ED: well developed HEENT Reports normocephalic, head/scalp atraumatic, TM's clear and moist mucous membranes Negative for trauma Tympanic Membrane ED: Yes TM's clear Eyes PERRL and EOMs intact bilaterally Neck no lymphadenopathy, supple and no JVD Resp normal respiratory effort and clear to auscultation bilaterally Cardio regular rate, regular rhythm and no murmurs GI normal to inspection, nondistended, normoactive bowel sounds and non-tender Palpation: soft Back/Spine no CVA tenderness and normal ROM Extremity normal to inspection General Extremety ED: Negative for edema General Extremity: Negative for edema Neuro oriented x3 and CN's II-XII intact bilaterally Sensorium / Orientation: alert Motor Exam: strength 5/5 throughout Psych mental status grossly normal Mood & Affect: Negative for depressed or tearful Skin no rashes or lesions noted and no wounds MDM MDM Lab Data Attestation: I reviewed the patient's lab results. Labs: Laboratory Results - last 24 hr 08/11/21 13:40 WBC 8.5 RBC 3.71 L Hgb 11.4 L Hct 35.3 L MCV 95.1 MCH 30.7 MCHC 32.3 RDW Std Deviation 46.9 H RDW Coeff of Ed 13.5 Plt Count 226 MPV 11.7 Immature Gran % (Auto) 0.700 Neut % (Auto) 70.0 Lymph % (Auto) 21.0 Cloud % (Auto) 5.3 Eos % (Auto) 2.4 Baso % (Auto) 0.6 Absolute Neuts (auto) 5.9 Absolute Lymphs (auto) 1.78 Nucleated RBC % 0 EKG Initial EKG: Attestation: I personally reviewed and interpreted this EKG as follows: Comments: Normal sinus rhythm with a ventricular rate of 88 bpm Discharge Plan Triage Chief Complaint: Dizziness ED Provider: Phong Vallecillo Dx/Rx/DC Orders Clinical Impression: Near syncope Instructions: ED Near-Fainting, Uncertain Cause Prescriptions: No Action glimepiride 4 MG tablet 4 mg PO BID RF: 0 paroxetine HCl 20 MG tablet 20 mg PO DAILY RF: 0 pantoprazole 40 MG tablet 40 mg PO DAILY RF: 0 metformin 1,000 MG tablet 1,000 mg PO BIDCM RF: 0 metformin 1,000 MG tablet 500 mg PO DAILY@1200 RF: 0 losartan 25 MG tablet 25 mg PO DAILY RF: 0 omega-3 fatty acids-fish oil 1 EACH capsule 1 cap PO DAILY RF: 0 aspirin 81 MG tablet,chewable 81 mg PO DAILY@0800 Qty: 14 RF: 0 Primary Care Provider: Jaciel Barragan Referrals: Jaciel Barragan MD [Primary Care Provider] - As Needed Disposition Disposition: Home, Self Care
[2021-08-11 14:08] LABS: Anion Gap 10 (5-15); BUN 33 mg/dL (7-18); BUN/Creat Ratio 16.8 RATIO (10-20); Calcium,Total 9.4 mg/dL (8.5-10.1); Chloride 103 mmol/L (98-107); Creatinine, Serum 1.96 mg/dL (0.55-1.02); EST Glomerular Filtration Rate 26 mL/min (>60); Est Glom Filt Rate - Afr Amer 32 mL/min (>60); Estimated Creatinine Clearance 18.94 ml/min; Glucose 262 mg/dL (74-106); Potassium 5.9 mmol/L (3.5-5.1); Sodium Level 137 mmol/L (136-145); Troponin-I HS 6 pg/mL (3.0-54.0)
[2021-08-11 14:36] VITALS: BP 117/72; PULSE 71
--- NOTE | 2021-08-17 15:27 | CASEMGMT ---
ED Follow-up phone call: MARQUITA HOLLIDAY attempted to complete call at this time. No answer, unable to leave voicemail as no mailbox is setup.
== END 2021-08-11 14:36 | disposition home or self-care (01) ==
PROVIDERS: Emergency Provider Emergency Medicine; PCP Family Medicine; Visit Provider Emergency Medicine
DX: R55 Syncope and collapse (principal); E11.22 Type 2 diabetes mellitus with diabetic chronic kidney disease; N18.30 Chronic kidney disease, stage 3 unspecified; I12.9 Hypertensive chronic kidney disease with stage 1 through stage 4 chronic kidney disease, or unspecified chronic kidney disease; Z86.16 Personal history of COVID-19; K21.9 Gastro-esophageal reflux disease without esophagitis; F32.A Depression, unspecified; F41.9 Anxiety disorder, unspecified; Z79.899 Other long term (current) drug therapy; Z79.82 Long term (current) use of aspirin; Z79.84 Long term (current) use of oral hypoglycemic drugs
CPT/HCPCS: 80048; 84484; 85025; 93005; 99285

== ENCOUNTER → 2022-01-18 | Outpatient (CLI) | payer MEDICARE, OTHER, SELFPAY ==
[2022-01-18 12:08] LABS: Absolute Lymphocyte Count 2.33 X10^3/uL (0.83-4.51); Absolute Neutrophil Count 5.2 X10^3/uL (2.0-7.7); Basophil# 0.05 X10^3/uL; Basophil% 0.6 % (0-1); Eosinophil# 0.32 X10^3/uL; Eosinophils% 3.8 % (0-5); Hematocrit 35.8 % (37-47); Hemoglobin 11.4 g/dL (12.0-15.0); Lymphocyte # 2.33 X10^3/ul (0.83-4.51); Lymphocyte % 27.7 % (19-41); Mean Corp Hgb Conc 31.8 g/dL (32-36); Mean Corpuscular Hgb 29.8 pg (27.0-32.0); Mean Corpuscular Volume 93.5 fL (81-99); Mean Platelet Vol. 11.9 fl (6.2-12.0); Monocyte# 0.48 X10^3/uL; Monocyte% 5.7 % (0-10); NRBC Flagged by Analyzer 0 % (0-5); Neutrophil % 61.7 % (47-70); Platelet Count 242 K/mm3 (150-450); RBC Distribution Width SD 47.3 fl (35.1-43.9); Red Blood Count 3.83 M/mm3 (4.2-5.4); White Blood Count 8.4 K/mm3 (4.4-11.0)
[2022-01-18 12:49] LABS: ALB/GLOB Ratio 0.8 RATIO (0.9-2.4); AST(SGOT) 11 U/L (15-37); Alanine Aminotransfer ALT/SGPT 19 U/L (13-56); Albumin, Serum 3.4 g/dL (3.2-5.0); Alkaline Phosphatase 57 U/L (45-117); Anion Gap 8 (5-15); BUN 34 mg/dL (7-18); BUN/Creat Ratio 22.8 RATIO (10-20); Calcium,Total 9.6 mg/dL (8.5-10.1); Chloride 105 mmol/L (98-107); Creatinine, Serum 1.49 mg/dL (0.55-1.02); EST Glomerular Filtration Rate 36 mL/min (>60); Est Glom Filt Rate - Afr Amer 43 mL/min (>60); Glucose 155 mg/dL (74-106); Potassium 4.7 mmol/L (3.5-5.1); Protein, Total 7.4 g/dL (6.4-8.2); Sodium Level 140 mmol/L (136-145)
== END | disposition home or self-care (01) ==
LOC: BFHLAB 10:44
PROVIDERS: PCP Family Medicine; Visit Provider Family Medicine
DX: E11.65 Type 2 diabetes mellitus with hyperglycemia (principal); E11.22 Type 2 diabetes mellitus with diabetic chronic kidney disease; N18.30 Chronic kidney disease, stage 3 unspecified; E78.00 Pure hypercholesterolemia, unspecified
CPT/HCPCS: 36415; 80053; 84443; 85025